=== PATIENT | male | born 1960 | race Caucasian/White ===

== ENCOUNTER 2017-03-22 15:34 | Inpatient (IN) | payer MEDICARE, MEDICAID ==
--- NOTE | 2017-03-22 15:44 | ED Physician Chart ---
ED Chief Complaint/HPI - Patient Information Date Seen:: 03/22/17 Time Seen:: 15:40 Chief Complaint:: Weakness History of Present Illness:: onset x 2 days of RUE and RLE weakness; hx of CVA; pt denies trauma, H/As, neck pain, C/P, SOB, Abd. Pain, A/N/V/D/C, fever, chills, or urinary s/s Historian:: Patient, EMS Review:: Nurse's Note Reviewed, Old Chart Reviewed, EMS run form Reviewed ED Review of Systems - Review of Systems General/Constitutional: No fever, No chills, No weight loss, No weakness, No diaphoresis, No edema, No loss of appetite Skin: No skin lesions, No rash, No bruising Head: No headache, No light-headedness Eyes: No loss of vision, No pain, No diplopia ENT: No earache, No nasal drainage, No sore throat, No tinnitus Neck: No neck pain, No swelling, No thyromegaly, No stiffness, No mass noted Cardio Vascular: No chest pain, No palpitations, No PND, No orthopnea, No edema Pulmonary: No SOB, No cough, No sputum, No wheezing GI: No nausea, No vomiting, No diarrhea, No pain, No melena, No hematochezia, No constipation, No hematemesis G/U: No dysuria, No frequency, No hematuria Musculoskeletal: Bone or joint pain, No back pain, No muscle pain Endocrine: No polyuria, No polydipsia Psychiatric: Prior psych history, No depression, Anxiety, No suicidal ideation, No homicidal ideation, No auditory hallucination, No visual hallucination Hematopoietic: No bruising, No lymphadenopathy Allergic/Immuno: No urticaria, No angioedema Neurological: No syncope, Focal symptoms, Weakness, No paresthesia, No headache , No seizure, No dizziness, No confusion, No vertigo ED Past Medical History - Past Medical History Obtainable: Yes Past Medical History: HTN, CAD, CVA/TIA, Arthritis Family History: Diabetes Melitus, HTN Social History: Non Smoker, No Alcohol, No Drug Use, Single, Care Facility Surgical History: None Psychiatricy History: Other (Anxiety) Medication: Reviewed ED Physical Exam - Physical Examination General/Constitutional: Awake, Well-developed, well-nourished, Alert, No distress, GCS 15, Non-toxic appearing, Ambulatory Head: Atraumatic Eyes: Lids, conjuctiva normal, PERRL, EOMI Skin: Nl inspection, No rash, No skin lesions, No ecchymosis, Well hydrated, No lymphadenopathy ENMT: External ears, nose nl, Nasal exam nl, Lips, teeth, gums nl Neck: Nontender, Full ROM w/o pain, No JVD, No nuchal rigidity, No bruit, No mass, No stridor Respiratory: Nl effort/Exclusion, Clear to Auscultation, No Wheeze/Rhonchi/Rales Cardio Vascular: RRR, No murmur, gallop, rubs, NL S1 S2 GI: No tenderness/rebounding/guarding, No organomegaly, No hernia, Normal BS's, Nondistended, No mass/bruits, No McBurney tenderness : No CVA tenderness Extremities: No tenderness or effusion, Full ROM, normal strength in all extremities, No edema, Normal digits & nails Neuro/Psych: Alert/oriented, DTR's symmetric, Judgement/insight normal, Mood normal, Normal gait, No focal deficits Other Neuro/Psych comments:: decreased motor and sensory functions of RUE and RLE Misc: Normal back, No paraspinal tenderness ED Septic Shock - . Is Septic Shock (SBP<90, OR Lactate>4 mmol\L) present?: No ED Reassessment (Disposition) - Reassessment Reassessment Condition:: Improved - Diagnosis Diagnosis:: CVA; HTN; Gout; Anxiety Disorder; Weakness - Aftercare/Follow up Instructions Aftercare/Follow-Up Instructions:: Counseled pt regarding lab results/diagnosis & need follow up, Counseled pt & family regarding lab results/diagnosis & need follow up - Patient Disposition Discharge/Transfer:: Acute Care w/in this hosp Accepting Physician:: Dr. Tinajero Time Called:: 1550 Time Responded:: 15:50 Admitted to:: Telemetry Spoke to:: Dr. Tinajero Admitting Medical Physician:: Dr. Tinajero Condition at Disposition:: Stable, Improved
[2017-03-22 16:11] LABS: % BASOPHILS 0.3 % (0.0-2.0); % EOSINOPHILS 4.7 % (0.0-5.0); % LYMPHOCYTES 34.2 % (20.0-50.0); % MONOCYTES 9.8 % (2.0-10.0); HEMATOCRIT 45.1 % (41.0-60); HEMOGLOBIN 15.4 gm/dL (12-16); MEAN CELL VOLUME 91.8 fl (80-99); MEAN CORPUSCULAR HEMOGLOBIN 31.4 pg (26.0-30.0); MEAN CORPUSCULAR HGB CONC 34.2 pg (28.0-36.0); MEAN PLATELET VOLUME 8.5 fl; NEUTROPHILE ABSOLUTE 5.6 Th/cmm (1.8-8.0); PLATELET COUNT 230 Th/cmm (150-400); RED BLOOD COUNT 4.92 Mil/cmm (4.30-5.70); RED CELL DISTRIBUTION WIDTH 14.4 % (11.5-20.0); WHITE BLOOD COUNT 10.9 Th/cmm (4.8-10.8)
[2017-03-22 16:47] LABS: ALB/GLOB RATIO 1.4 (1.0-1.8); ALKALINE PHOSPHATASE 47 U/L (34-104); ANION GAP 6.2 (7.0-16.0); BILIRUBIN,TOTAL 0.3 mg/dL (0.3-1.0); BUN - UREA NITROGEN 14 mg/dL (7-25); BUN/CREATININE RATIO 17.5; CALCIUM SERUM 9.1 mg/dL (8.6-10.3); CARBON DIOXIDE 29.7 mEq/L (21.0-31.0); CHLORIDE 101 mEq/L (98-107); CHOLESTEROL 157 mg/dL (<200); CREATININE - SERUM 0.8 mg/dL (0.7-1.3); GLUCOSE 79 mg/dL (70-105); POTASSIUM SERUM 3.9 mEq/L (3.5-5.1); SGOT 13 U/L (13-39); SGPT/ALT 12 U/L (7-52); SODIUM SERUM 133 mEq/L (136-145); TRIGLYCERIDES 260 mg/dL (<150)
[2017-03-22 16:51] LABS: INR 0.95 (0.5-1.4); PROTHROMBIN TIME (TEST) 9.9 SECONDS (9.5-11.5)
[2017-03-22 17:32] LABS: URINE BILIRUBIN NEGATIVE (NEGATIVE); URINE BLOOD NEGATIVE (NEGATIVE); URINE GLUCOSE (UA) NEGATIVE (NEGATIVE); URINE KETONE NEGATIVE (NEGATIVE); URINE PROTEIN NEGATIVE (NEGATIVE); URINE UROBILINOGEN 0.2 E.U./dL (0.2 - 1.0)
[2017-03-22 17:34] LABS: URINE COLOR YELLOW
--- NOTE | 2017-03-22 20:47 | History & Physical ---
ADMIT DATE: 03/22/2017 HISTORY OF PRESENT ILLNESS: The patient is very well known to me. The patient is known to have history of hypertension, history of diabetes, history of CVA with right hemiparesis, also has a history of pulmonary embolism. I had taken care of the patient at several hospitals and also in the [facility]. He was at [facility]. He is complaining of increasing weakness of the right arm and leg and was also complaining of dizzy when he gets up as well as vertigo. The patient was referred to [facility] Emergency Room, was evaluated, and was admitted for recurrent stroke. The patient has no fever, no chills, no skin lesion, no headache, no neck pain. No chest pain, no nausea, no vomiting, no dysuria. Complains of bony pains. The patient complains of arthritis of both the knees. The patient otherwise is alert, oriented. PHYSICAL EXAMINATION: General: Alert, oriented, elderly male patient. He somewhat has some facial deviation as well as right-sided weakness and right hemiparesis. HEAD: Normal. EYES: Pupils are equal, reactive to light. NECK: Supple, nontender. LUNGS: Clear. CARDIOVASCULAR SYSTEM: S1, S2 heard. ABDOMEN: Soft. Bowel sounds are heard. CENTRAL NERVOUS SYSTEM: Right hemiparesis. DIAGNOSES: Recurrent hemiparesis, recurrent stroke, history of cerebrovascular accident, history of hypertension, history of diabetes, history of pulmonary embolism. PLAN: The patient is being admitted and I will go ahead and do a cardiac evaluation as well as a neurological workup, and I will follow the patient. [facility]# [id number]
[2017-03-22] MEDS ORDERED: Fleet Enema 135 mL RC PRN (22:38)
[2017-03-22] MEDS ORDERED: Magnesium Hydroxide (MOM) 30 mL UDC PO PRN (22:38)
[2017-03-22] MEDS ORDERED: Maalox 30 mL Cup PO PRN (22:38)
--- NOTE | 2017-03-23 07:50 | Diagnostic Imaging Report ---
CHEST X-RAY: AP view INDICATION: pain COMPARISON: None FINDINGS: Exam is limited due to body habitus. There is slight hazy density of the left hemithorax. No focal consolidation or effusions. Heart size is normal. Degenerative changes of spine are noted with scoliosis. IMPRESSION: Slight hazy density of the left hemithorax which is nonspecific and may be due to superimposition of soft tissue structures. Faint infiltrate is considered less likely. Please correlate with findings No focal airspace consolidation identified.
--- NOTE | 2017-03-23 08:07 | Diagnostic Imaging Report ---
Head CT without intravenous contrast Indication: Weakness Comparison: None Technique: Axial images were obtained from the vertex to the skull base without IV contrast. Coronal reconstructions were made. Total DLP: 719, CTDI39.2 FINDINGS: Images of the brain obtained without contrast demonstrate no evidence of an acute hemorrhage. Old infarcts and encephalomalacia seen along left frontal lobe and left basal ganglia. Atrophy is noted. The ventricles and basal cisterns are patent. There is ex vacuo dilatation of the left lateral ventricle. No mass effect or midline shift. No evidence of a skull fracture or focal soft tissue swelling. There is 1 cm bony protuberance along the inner table of left frontal skull. The visualized paranasal sinuses are clear. IMPRESSION: No evidence of acute intracranial hemorrhage. Encephalomalacia of the left frontal lobe likely due to old infarct. Additional old left basal ganglia infarcts are also noted. There is associated ex vacuo dilatation of the left lateral ventricle Atrophy.
[2017-03-23] MEDS ORDERED: Non-Formulary Item 1 EA (Amino Acids/Protein Hydrolys [Pro-Stat Sugar Free Liquid] 30 ML) PO SCH (09:00)
[2017-03-23] MEDS: Multivitamin w/ Minerals Tab PO SCH (09:11)
[2017-03-23 10:28] LABS: URINE BACTERIA OCCASIONAL /hpf (NONE SEEN); URINE EPITHELIAL CELLS OCCASIONAL /lpf (FEW); URINE RBC 0-2 /hpf (0-5)
--- NOTE | 2017-03-23 11:13 | General Progress Note ---
Subjective - Review of Systems Events since last encounter: patient is comfortable no distress no fever Objective - Results Result Diagrams: 03/22/17 16:00 03/22/17 16:00 Recent Labs: Laboratory Last Values WBC 10.9 Th/cmm (4.8-10.8) H 03/22/17 16:00 RBC 4.92 Mil/cmm (4.30-5.70) 03/22/17 16:00 Hgb 15.4 gm/dL (12-16) 03/22/17 16:00 Hct 45.1 % (41.0-60) 03/22/17 16:00 MCV 91.8 fl (80-99) 03/22/17 16:00 MCH 31.4 pg (26.0-30.0) H 03/22/17 16:00 MCHC Differential 34.2 pg (28.0-36.0) 03/22/17 16:00 RDW 14.4 % (11.5-20.0) 03/22/17 16:00 Plt Count 230 Th/cmm (150-400) 03/22/17 16:00 MPV 8.5 fl 03/22/17 16:00 Neutrophils % 51.0 % (40.0-80.0) 03/22/17 16:00 Lymphocytes % 34.2 % (20.0-50.0) 03/22/17 16:00 Monocytes % 9.8 % (2.0-10.0) 03/22/17 16:00 Eosinophils % 4.7 % (0.0-5.0) 03/22/17 16:00 Basophils % 0.3 % (0.0-2.0) 03/22/17 16:00 PT 9.9 SECONDS (9.5-11.5) 03/22/17 16:00 INR 0.95 (0.5-1.4) 03/22/17 16:00 Sodium 133 mEq/L (136-145) L 03/22/17 16:00 Potassium 3.9 mEq/L (3.5-5.1) 03/22/17 16:00 Chloride 101 mEq/L (98-107) 03/22/17 16:00 Carbon Dioxide 29.7 mEq/L (21.0-31.0) 03/22/17 16:00 Anion Gap 6.2 (7.0-16.0) L 03/22/17 16:00 BUN 14 mg/dL (7-25) 03/22/17 16:00 Creatinine 0.8 mg/dL (0.7-1.3) 03/22/17 16:00 Est GFR ( Amer) > 60.0 ml/min (>90) 03/22/17 16:00 Est GFR (Non-Af Amer) > 60.0 ml/min 03/22/17 16:00 BUN/Creatinine Ratio 17.5 03/22/17 16:00 Glucose 79 mg/dL (70-105) 03/22/17 16:00 Calcium 9.1 mg/dL (8.6-10.3) 03/22/17 16:00 Total Bilirubin 0.3 mg/dL (0.3-1.0) 03/22/17 16:00 AST 13 U/L (13-39) 03/22/17 16:00 ALT 12 U/L (7-52) 03/22/17 16:00 Alkaline Phosphatase 47 U/L (34-104) 03/22/17 16:00 Creatine Kinase 86 U/L (30-223) 03/22/17 16:00 Troponin I 0.01 ng/mL (0.01-0.05) 03/22/17 16:00 B-Natriuretic Peptide 5.3 pg/mL (5.0-100.0) 03/22/17 16:00 Total Protein 7.1 gm/dL (6.0-8.3) 03/22/17 16:00 Albumin 4.1 gm/dL (4.2-5.5) L 03/22/17 16:00 Globulin 3.0 gm/dL 03/22/17 16:00 Albumin/Globulin Ratio 1.4 (1.0-1.8) 03/22/17 16:00 Triglycerides 260 mg/dL (<150) H 03/22/17 16:00 Cholesterol 157 mg/dL (<200) 03/22/17 16:00 LDL Cholesterol Direct 99 mg/dL (75-193) 03/22/17 16:00 HDL Cholesterol 35 mg/dL (23-92) 03/22/17 16:00 Urine Source CLEAN C 03/22/17 17:20 Urine Color YELLOW 03/22/17 17:20 Urine Clarity CLEAR (CLEAR) 03/22/17 17:20 Urine pH 6.0 (4.6 - 8.0) 03/22/17 17:20 Ur Specific [place] 1.010 (1.005-1.030) 03/22/17 17:20 Urine Protein NEGATIVE mg/dL (NEGATIVE) 03/22/17 17:20 Urine Glucose (UA) NEGATIVE mg/dL (NEGATIVE) 03/22/17 17:20 Urine Ketones NEGATIVE mg/dL (NEGATIVE) 03/22/17 17:20 Urine Blood NEGATIVE (NEGATIVE) 03/22/17 17:20 Urine Nitrate NEGATIVE (NEGATIVE) 03/22/17 17:20 Urine Bilirubin NEGATIVE (NEGATIVE) 03/22/17 17:20 Urine Urobilinogen 0.2 E.U./dL (0.2 - 1.0) 03/22/17 17:20 Ur Leukocyte Esterase NEGATIVE (NEGATIVE) 03/22/17 17:20 Urine RBC 0-2 /hpf (0-5) H 03/22/17 17:20 Ur Epithelial Cells OCCASIONAL /lpf (FEW) 03/22/17 17:20 Urine Bacteria OCCASIONAL /hpf (NONE SEEN) 03/22/17 17:20 - Physical Exam Vitals and I&O: Vital Signs Temp 98.0 F 03/23/17 08:00 Pulse 55 03/23/17 08:00 Resp 18 03/23/17 08:00 BP 114/66 03/23/17 08:00 Pulse Ox 96 03/23/17 04:00 Intake & Output 03/22/17 03/23/17 03/23/17 18:59 06:59 18:59 Intake Total 0 Output Total 600 Balance -600 Weight (lbs) 106.594 kg Intake: Oral 0 Tube Feeding 0 TPN/PPN 0 Blood Product 0 Lipid 0 Albumin 0 Other 0 Output: Gastric Drainage 0 Urine 600 Stool 0 Urine/Stool Mix 0 Emesis 0 Hemodialysis 0 Other 0 Other: # Voids 1 # Bowel Movements 0 Active Medications: Current Medications Acetaminophen (Tylenol) 650 mg PO Q4HR PRN PRN Reason: TEMP >101 Stop: 05/21/17 22:37 Acetaminophen (Tylenol Extra Strength) 1,000 mg PO Q4HR PRN PRN Reason: MODERATE PAIN Stop: 05/21/17 22:37 Al Hydrox/Mg Hydrox/Simethicone (Maalox) 30 ml PO Q6H PRN PRN Reason: HEARTBURN/DYSPEPSIA Ascorbic Acid (Vitamin C) 500 mg PO DAILY [facility] Stop: 05/22/17 08:59 Last Admin: 03/23/17 09:11 Dose: 500 mg Bisacodyl (Dulcolax 10 Mg Supp) 10 mg RC DAILY PRN PRN Reason: IF MOM INEFFECTIVE FOR CONSTIP Stop: 05/21/17 22:37 Chlordiazepoxide (Librium) 25 mg PO DAILY [facility] PRN Reason: Protocol Stop: 05/22/17 08:59 Last Admin: 03/23/17 09:11 Dose: 25 mg Docusate Sodium (Colace) 100 mg PO DAILY [facility] Stop: 05/22/17 08:59 Last Admin: 03/23/17 09:11 Dose: 100 mg Magnesium Hydroxide (Milk Of Magnesia) 30 ml PO HS PRN PRN Reason: Constipation Stop: 05/21/17 22:37 Ondansetron HCl (Zofran Odt) 4 mg PO Q4H PRN PRN Reason: NAUSEA/VOMITING Sodium Phosphate (Fleet Enema) 135 ml RC Q48H PRN PRN Reason: IF DULCOLAX INEFFECTIVE FOR CO Stop: 05/21/17 22:37 Zolpidem Tartrate (Ambien) 5 mg PO HS [facility] Stop: 05/22/17 20:59 General: No acute distress HEENT: Atraumatic Neck: Thyromegaly Cardiovascular: Regular rate, Normal S1, Normal S2 Lungs: Clear to auscultation Assessment/Plan - Problem List Patient Problems: All Active Problems INCREASED WEAKNESS WITH BODY PAIN (Acute) - Plan Plan: cpm
[2017-03-24 06:00] LABS: % EOSINOPHILS 5.2 % (0.0-5.0); % LYMPHOCYTES 35.6 % (20.0-50.0); % MONOCYTES 8.6 % (2.0-10.0); % NEUTROPHILS 49.6 % (40.0-80.0); HEMOGLOBIN 15.8 gm/dL (12-16); MEAN CELL VOLUME 92.4 fl (80-99); MEAN CORPUSCULAR HEMOGLOBIN 30.5 pg (26.0-30.0); MEAN PLATELET VOLUME 8.9 fl; NEUTROPHILE ABSOLUTE 5.7 Th/cmm (1.8-8.0); PLATELET COUNT 247 Th/cmm (150-400); RED BLOOD COUNT 5.19 Mil/cmm (4.30-5.70); RED CELL DISTRIBUTION WIDTH 14.2 % (11.5-20.0); WHITE BLOOD COUNT 11.5 Th/cmm (4.8-10.8)
[2017-03-24 06:31] LABS: ALB/GLOB RATIO 1.3 (1.0-1.8); ALKALINE PHOSPHATASE 40 U/L (34-104); ANION GAP 8.4 (7.0-16.0); BILIRUBIN,TOTAL 0.5 mg/dL (0.3-1.0); BUN - UREA NITROGEN 12 mg/dL (7-25); CARBON DIOXIDE 28.3 mEq/L (21.0-31.0); CHLORIDE 104 mEq/L (98-107); CREATININE - SERUM 0.8 mg/dL (0.7-1.3); GLUCOSE 82 mg/dL (70-105); POTASSIUM SERUM 3.7 mEq/L (3.5-5.1); SGOT 11 U/L (13-39); SGPT/ALT 10 U/L (7-52); SODIUM SERUM 137 mEq/L (136-145)
[2017-03-24] MEDS: Acetaminophen 500 MG TAB PO PRN ×2 (09:25→21:53)
[2017-03-24] MEDS: Multivitamin w/ Minerals Tab PO SCH (09:26)
--- NOTE | 2017-03-24 11:35 | Internal Medicine Prog Note ---
Internal Medicine Subjective - Subjective Service Date: 03/24/17 Patient seen and examined:: with staff Patient is:: awake, verbal Per staff patient has:: tolerating meds Internal Medicine Objective - Results Result Diagrams: 03/24/17 05:18 03/24/17 05:18 Recent Labs: Laboratory Last Values WBC 11.5 Th/cmm (4.8-10.8) H 03/24/17 05:18 RBC 5.19 Mil/cmm (4.30-5.70) 03/24/17 05:18 Hgb 15.8 gm/dL (12-16) 03/24/17 05:18 Hct 48.0 % (41.0-60) 03/24/17 05:18 MCV 92.4 fl (80-99) 03/24/17 05:18 MCH 30.5 pg (26.0-30.0) H 03/24/17 05:18 MCHC Differential 33.0 pg (28.0-36.0) 03/24/17 05:18 RDW 14.2 % (11.5-20.0) 03/24/17 05:18 Plt Count 247 Th/cmm (150-400) 03/24/17 05:18 MPV 8.9 fl 03/24/17 05:18 Neutrophils % 49.6 % (40.0-80.0) 03/24/17 05:18 Lymphocytes % 35.6 % (20.0-50.0) 03/24/17 05:18 Monocytes % 8.6 % (2.0-10.0) 03/24/17 05:18 Eosinophils % 5.2 % (0.0-5.0) H 03/24/17 05:18 Basophils % 1.0 % (0.0-2.0) 03/24/17 05:18 PT 9.9 SECONDS (9.5-11.5) 03/22/17 16:00 INR 0.95 (0.5-1.4) 03/22/17 16:00 Sodium 137 mEq/L (136-145) 03/24/17 05:18 Potassium 3.7 mEq/L (3.5-5.1) 03/24/17 05:18 Chloride 104 mEq/L (98-107) 03/24/17 05:18 Carbon Dioxide 28.3 mEq/L (21.0-31.0) 03/24/17 05:18 Anion Gap 8.4 (7.0-16.0) 03/24/17 05:18 BUN 12 mg/dL (7-25) 03/24/17 05:18 Creatinine 0.8 mg/dL (0.7-1.3) 03/24/17 05:18 Est GFR ( Amer) > 60.0 ml/min (>90) 03/24/17 05:18 Est GFR (Non-Af Amer) > 60.0 ml/min 03/24/17 05:18 BUN/Creatinine Ratio 15.0 03/24/17 05:18 Glucose 82 mg/dL (70-105) 03/24/17 05:18 Calcium 9.0 mg/dL (8.6-10.3) 03/24/17 05:18 Total Bilirubin 0.5 mg/dL (0.3-1.0) 03/24/17 05:18 AST 11 U/L (13-39) L 03/24/17 05:18 ALT 10 U/L (7-52) 03/24/17 05:18 Alkaline Phosphatase 40 U/L (34-104) 03/24/17 05:18 Creatine Kinase 86 U/L (30-223) 03/22/17 16:00 Troponin I 0.01 ng/mL (0.01-0.05) 03/22/17 16:00 B-Natriuretic Peptide 5.3 pg/mL (5.0-100.0) 03/22/17 16:00 Total Protein 6.7 gm/dL (6.0-8.3) 03/24/17 05:18 Albumin 3.8 gm/dL (4.2-5.5) L 03/24/17 05:18 Globulin 2.9 gm/dL 03/24/17 05:18 Albumin/Globulin Ratio 1.3 (1.0-1.8) 03/24/17 05:18 Triglycerides 260 mg/dL (<150) H 03/22/17 16:00 Cholesterol 157 mg/dL (<200) 03/22/17 16:00 LDL Cholesterol Direct 99 mg/dL (75-193) 03/22/17 16:00 HDL Cholesterol 35 mg/dL (23-92) 03/22/17 16:00 Urine Source CLEAN C 03/22/17 17:20 Urine Color YELLOW 03/22/17 17:20 Urine Clarity CLEAR (CLEAR) 03/22/17 17:20 Urine pH 6.0 (4.6 - 8.0) 03/22/17 17:20 Ur Specific [place] 1.010 (1.005-1.030) 03/22/17 17:20 Urine Protein NEGATIVE mg/dL (NEGATIVE) 03/22/17 17:20 Urine Glucose (UA) NEGATIVE mg/dL (NEGATIVE) 03/22/17 17:20 Urine Ketones NEGATIVE mg/dL (NEGATIVE) 03/22/17 17:20 Urine Blood NEGATIVE (NEGATIVE) 03/22/17 17:20 Urine Nitrate NEGATIVE (NEGATIVE) 03/22/17 17:20 Urine Bilirubin NEGATIVE (NEGATIVE) 03/22/17 17:20 Urine Urobilinogen 0.2 E.U./dL (0.2 - 1.0) 03/22/17 17:20 Ur Leukocyte Esterase NEGATIVE (NEGATIVE) 03/22/17 17:20 Urine RBC 0-2 /hpf (0-5) H 03/22/17 17:20 Ur Epithelial Cells OCCASIONAL /lpf (FEW) 03/22/17 17:20 Urine Bacteria OCCASIONAL /hpf (NONE SEEN) 03/22/17 17:20 - Physical Exam Vitals and I&O: Vital Signs Temp 98.4 F 03/24/17 04:00 Pulse 65 03/24/17 04:00 Resp 18 03/24/17 04:00 BP 121/68 03/24/17 04:00 Pulse Ox 98 03/24/17 04:00 Intake & Output 03/23/17 03/24/17 03/24/17 18:59 06:59 18:59 Intake Total 1740 Output Total 1250 0 Balance 490 0 Weight (lbs) 235 lb 232 lb Intake: Oral 1740 Output: Urine 1250 Stool 0 Other: # Voids 3 Active Medications: Current Medications Acetaminophen (Tylenol) 650 mg PO Q4HR PRN PRN Reason: TEMP >101 Stop: 05/21/17 22:37 Acetaminophen (Tylenol Extra Strength) 1,000 mg PO Q4HR PRN PRN Reason: MODERATE PAIN Stop: 05/21/17 22:37 Last Admin: 03/24/17 09:25 Dose: 1,000 mg Al Hydrox/Mg Hydrox/Simethicone (Maalox) 30 ml PO Q6H PRN PRN Reason: HEARTBURN/DYSPEPSIA Ascorbic Acid (Vitamin C) 500 mg PO DAILY [facility] Stop: 05/22/17 08:59 Last Admin: 03/24/17 09:25 Dose: 500 mg Bisacodyl (Dulcolax 10 Mg Supp) 10 mg RC DAILY PRN PRN Reason: IF MOM INEFFECTIVE FOR CONSTIP Stop: 05/21/17 22:37 Chlordiazepoxide (Librium) 25 mg PO DAILY [facility] PRN Reason: Protocol Stop: 05/22/17 08:59 Last Admin: 03/24/17 09:26 Dose: 25 mg Docusate Sodium (Colace) 100 mg PO DAILY [facility] Stop: 05/22/17 08:59 Last Admin: 03/24/17 09:25 Dose: 100 mg Magnesium Hydroxide (Milk Of Magnesia) 30 ml PO HS PRN PRN Reason: Constipation Stop: 05/21/17 22:37 Ondansetron HCl (Zofran Odt) 4 mg PO Q4H PRN PRN Reason: NAUSEA/VOMITING Sodium Phosphate (Fleet Enema) 135 ml RC Q48H PRN PRN Reason: IF DULCOLAX INEFFECTIVE FOR CO Stop: 05/21/17 22:37 Zolpidem Tartrate (Ambien) 5 mg PO HS [facility] Stop: 05/22/17 20:59 Last Admin: 03/23/17 21:45 Dose: 5 mg General: alert HEENT: NC/AT, PERRLA Neck: Supple Lungs: CTAB Cardiovascular: RRR, Normal S1, Normal S2, without murmur Abdomen: soft, non-tender, non-distended, positive bowel sound Extremities: excoriation Neurological: alert Internal Medicine Assmt/Plan - Assessment Assessment: recent hemiparesis recent stroke hx cva htn dm hx PE - Plan Plan: fall precautions pt eval tele monitoring continue current plan of care
[2017-03-25] MEDS: Multivitamin w/ Minerals Tab PO SCH (09:08)
--- NOTE | 2017-03-25 21:11 | Discharge Summary ---
DATE OF DISCHARGE: 03/25/2017 COURSE OF HOSPITAL TREATMENT: This is a 56-year-old male who was admitted through the Emergency Room from home due to increased generalized weakness. From the Emergency Room, the patient work ups were done and diagnosed with increasing hemiparesis due to history of CVA and history of hypertension and pulmonary embolism, hence, the patient was admitted to telemetry unit on which monitoring was done. Once stabilized, the patient was discharged home with the family members. Prescription was given and instructed to follow up with primary doctor within 7 days. Discharge instructions were given to patient and verbalize understanding. JOB# [id number]
== END 2017-03-25 10:45 | disposition home or self-care (01) | DRG 71 ==
LOC: ER 15:34 → TELE 15:50
PROVIDERS: ADMIT Internal Medicine; ATTEND Internal Medicine
DX: G93.89 Other specified disorders of brain (principal); I69.351 Hemiplegia and hemiparesis following cerebral infarction affecting right dominant side; E11.9 Type 2 diabetes mellitus without complications; I10 Essential (primary) hypertension; F41.9 Anxiety disorder, unspecified; M10.9 Gout, unspecified; I25.10 Atherosclerotic heart disease of native coronary artery without angina pectoris; M17.0 Bilateral primary osteoarthritis of knee; Z86.711 Personal history of pulmonary embolism; Z83.3 Family history of diabetes mellitus; Z82.49 Family history of ischemic heart disease and other diseases of the circulatory system; I69.398 Other sequelae of cerebral infarction
CPT/HCPCS: 36415-UA; 70450-TC; 71010-TC; 80053-TC; 80061-TC; 81001-TC; 82550-TC; 83880-TC; 84484-TC; 85025-TC; 85610-TC; 93005; Z7610

== ENCOUNTER 2017-09-26 21:42 | Inpatient (IN) | payer MEDICARE, MEDICAID ==
--- NOTE | 2017-09-26 21:54 | ED Physician Chart ---
ED Chief Complaint/HPI - Patient Information Date Seen:: 09/26/17 Time Seen:: 21:49 Chief Complaint:: Dysuria, hematuria and low back pain History of Present Illness:: 56 yo male with history of stroke and right hemiparesis was brought from [facility] to ER for evaluation of dysuria, hematuria and low back pain for 5 hours. Allergies:: Allergies Allergy/AdvReac Type Severity Reaction Status Date / Time No Known Allergies Allergy Verified 03/22/17 15:52 ED Review of Systems - Review of Systems General/Constitutional: No fever Skin: No bruising Head: No headache Eyes: No pain ENT: No nasal drainage Neck: No neck pain Cardio Vascular: No chest pain Pulmonary: No SOB GI: No nausea, No vomiting G/U: Dysuria, Hematuria Musculoskeletal: Bone or joint pain, Back pain Neurological: Weakness ED Past Medical History - Past Medical History Past Medical History: HTN, CAD, CVA/TIA, DVT/PE, Other (Obese) Social History: Smoker, Alcohol, Illicit Drug Use (marijuana) Surgical History: Appendectomy Psychiatricy History: Other (psychosis) Family Medical History - Family Member Mother History Unknown: Yes Ethnicity: Living Status: Hx Family Cancer: No Hx Family Coronary Artery Disease: No Hx Family Congestive Heart Failure: No Hx Family Hypertension: No Hx Family Stroke: Yes Hx Family Diabetes: No Hx Family Seizures: No Hx Family Dementia: No Hx Family AIDS: No Hx Family HIV: No Hx Family COPD: No Hx Family Hepatitis: No Hx Family Psychiatric Problems: No Hx Family Tuberculosis: No ED Physical Exam - Physical Examination General/Constitutional: Awake Head: Atraumatic Eyes: PERRL Skin: No ecchymosis ENMT: Nasal exam nl Neck: No nuchal rigidity Respiratory: No Wheeze/Rhonchi/Rales Cardio Vascular: RRR, No murmur, gallop, rubs, NL S1 S2 GI: No tenderness/rebounding/guarding Extremities: No edema Other Neuro/Psych comments:: LUE 5/5, LLE 5/5, RUE 2/5, RLE 3/5 ED Labs/Radiology/EKG Results - Lab Results Results: Laboratory Last Values WBC 22.3 Th/cmm (4.8-10.8) H* D 09/26/17 22:15 RBC 4.99 Mil/cmm (4.30-5.70) 09/26/17 22:15 Hgb 15.3 gm/dL (12-16) 09/26/17:15 Hct 45.7 % (41.0-60) 09/26/17:15 MCV 91.6 fl (80-99) 09/26/17 22:15 MCH 30.6 pg (26.0-30.0) H 09/26/17:15 MCHC Differential 33.5 pg (28.0-36.0) 09/26/17: RDW 14.3 % (11.5-20.0) 09/26/17:15 Plt Count 208 Th/cmm (150-400) 09/26/17: MPV 9.1 fl 09/26/17: Band Neutrophils % 7 % (0-10) 09/26/17: Neutrophils (Manual) 81 % (40-80) H 09/26/17: Lymphocytes 11 % (20-50) L 09/26/17: Eosinophils 1 % (0-5) 09/26/17: Platelet Estimate ADEQUATE (NORMAL) 09/26/17: PT 16.1 SECONDS (9.5-11.5) H 09/26/17: INR 1.52 (0.5-1.4) H 09/26/17: PTT (Actin FS) 42.4 SECONDS (26.0-38.0) H 09/26/17 22:15 D-Dimer < 100 ng/mL (100-400) L 09/26/17 22:15 Sodium 136 mEq/L (136-145) 09/26/17:15 Potassium 3.8 mEq/L (3.5-5.1) 09/26/17: Chloride 103 mEq/L (98-107) 09/26/17: Carbon Dioxide 24.9 mEq/L (21.0-31.0) 09/26/17: Anion Gap 11.9 (7.0-16.0) 09/26/17 22:15 BUN 6 mg/dL (7-25) L 09/26/17: Creatinine 0.8 mg/dL (0.7-1.3) 05/22/18 22:15 Est GFR ( Amer) > 60.0 ml/min (>90) 09/26/17 22:15 Est GFR (Non-Af Amer) > 60.0 ml/min 09/26/17 22:15 BUN/Creatinine Ratio 7.5 09/26/17 22:15 Glucose 87 mg/dL (70-105) 09/26/17 22:15 Whole Bld Lactic Acid 0.81 mmol/L (0.60-1.99) 09/26/17 22:15 Calcium 9.2 mg/dL (8.6-10.3) 09/26/17 22:15 Total Bilirubin 1.0 mg/dL (0.3-1.0) 09/26/17 22:15 AST 11 U/L (13-39) L 09/26/17 22:15 ALT 13 U/L (7-52) 09/26/17 22:15 Alkaline Phosphatase 73 U/L (34-104) 09/26/17 22:15 Troponin I < 0.01 ng/mL (0.01-0.05) L 09/26/17 22:15 B-Natriuretic Peptide 15.6 pg/mL (5.0-100.0) 09/26/17 22:15 Total Protein 7.1 gm/dL (6.0-8.3) 09/26/17 22:15 Albumin 4.0 gm/dL (4.2-5.5) L 09/26/17 22:15 Globulin 3.1 gm/dL 09/26/17 22:15 Albumin/Globulin Ratio 1.3 (1.0-1.8) 09/26/17 22:15 Lipase 14 U/L (11-82) 09/26/17 22:15 Urine Source RANDOM 09/26/17 21:50 Urine Color YELLOW 09/26/17 21:50 Urine Clarity CLOUDY (CLEAR) 09/26/17 21:50 Urine pH 6.0 (4.6 - 8.0) 09/26/17 21:50 Ur Specific [place] <= 1.005 (1.005-1.030) 09/26/17 21:50 Urine Protein TRACE mg/dL (NEGATIVE) 09/26/17 21:50 Urine Glucose (UA) NEGATIVE mg/dL (NEGATIVE) 09/26/17 21:50 Urine Ketones TRACE mg/dL (NEGATIVE) 09/26/17 21:50 Urine Blood LARGE (NEGATIVE) H 09/26/17 21:50 Urine Nitrate POSITIVE (NEGATIVE) H 09/26/17 21:50 Urine Bilirubin NEGATIVE (NEGATIVE) 09/26/17 21:50 Urine Urobilinogen 0.2 E.U./dL (0.2 - 1.0) 09/26/17 21:50 Ur Leukocyte Esterase LARGE (NEGATIVE) H 09/26/17 21:50 Urine RBC 2-5 /hpf (0-5) H 09/26/17 21:50 Urine WBC >100 /hpf (0-5) H 09/26/17 21:50 Ur Epithelial Cells FEW /lpf (FEW) 09/26/17 21:50 Urine Bacteria MODERATE /hpf (NONE SEEN) H 09/26/17 21:50 Urine Opiates Screen NEGATIVE (NEGATIVE) 09/26/17 21:50 Urine Methadone Screen NEGATIVE (NEGATIVE) 09/26/17 21:50 Ur Barbiturates Screen NEGATIVE (NEGATIVE) 09/26/17 21:50 Ur Tricyclics Screen POSITIVE (NEGATIVE) H 09/26/17 21:50 Ur Phencyclidine Scrn NEGATIVE (NEGATIVE) 09/26/17 21:50 Amphetamines Screen NEGATIVE (NEGATIVE) 09/26/17 21:50 U Methamphetamines Scrn NEGATIVE (NEGATIVE) 09/26/17 21:50 U Benzodiazepines Scrn NEGATIVE (NEGATIVE) 09/26/17 21:50 U Cocaine Metab Screen NEGATIVE (NEGATIVE) 09/26/17 21:50 U Cannabinoids Screen POSITIVE (NEGATIVE) H 09/26/17 21:50 - Radiology Results Results: CXR: No focal consolidation ED Assessment - Assessment General Assessment: UTI Leukocytosis Hematuria Stroke with right hemiparesis Assessment/Comments:: CBC, CMP, UA CXR, EKG Rocephin NS 1L IV bolus ED Septic Shock - . Is Septic Shock (SBP<90, OR Lactate>4 mmol\L) present?: No ED Reassessment (Disposition) - Reassessment Reassessment Condition:: Improved - Patient Disposition Discharge/Transfer:: Acute Care w/in this hosp Admitting Medical Physician:: Nicole Tinajero ED Discharge Plan - Patient Disposition Admit/Discharge/Transfer: Acute Care w/in this hosp
[2017-09-26 22:25] LABS: HEMATOCRIT 45.7 % (41.0-60); HEMOGLOBIN 15.3 gm/dL (12-16); MANUAL DIFF REQUIRED? YES; MEAN CELL VOLUME 91.6 fl (80-99); MEAN CORPUSCULAR HEMOGLOBIN 30.6 pg (26.0-30.0); MEAN CORPUSCULAR HGB CONC 33.5 pg (28.0-36.0); MEAN PLATELET VOLUME 9.1 fl; PLATELET COUNT 208 Th/cmm (150-400); RED BLOOD COUNT 4.99 Mil/cmm (4.30-5.70); RED CELL DISTRIBUTION WIDTH 14.3 % (11.5-20.0)
[2017-09-26 22:26] LABS: URINE MICROSCOPIC INDICATED? YES; URINE SOURCE RANDOM
[2017-09-26 22:30] LABS: WHITE BLOOD COUNT 22.3 Th/cmm (4.8-10.8)
[2017-09-26] MEDS ORDERED: Sodium Chloride 0.9% 1,000 ML IV ONE (22:32)
[2017-09-26 22:35] LABS: URINE BILIRUBIN NEGATIVE (NEGATIVE); URINE BLOOD LARGE (NEGATIVE); URINE GLUCOSE (UA) NEGATIVE (NEGATIVE); URINE KETONE TRACE mg/dL (NEGATIVE); URINE LEUKOCYTE ESTERASE LARGE (NEGATIVE); URINE NITRATE POSITIVE (NEGATIVE); URINE PROTEIN TRACE mg/dL (NEGATIVE); URINE UROBILINOGEN 0.2 E.U./dL (0.2 - 1.0)
[2017-09-26 22:41] LABS: INR 1.52 (0.5-1.4); PROTHROMBIN TIME (TEST) 16.1 SECONDS (9.5-11.5)
[2017-09-26 22:46] LABS: URINE CLARITY CLOUDY (CLEAR); URINE COLOR YELLOW
[2017-09-26 22:47] LABS: URINE EPITHELIAL CELLS FEW /lpf (FEW); URINE WBC >100 /hpf (0-5)
[2017-09-26 22:48] LABS: URINE BACTERIA MODERATE /hpf (NONE SEEN)
[2017-09-26] MEDS ORDERED: cefTRIAXone 1 GM in Sodium Chloride 0.9% 50 ML IV ONE (22:50)
[2017-09-26 22:53] LABS: ALB/GLOB RATIO 1.3 (1.0-1.8); ALKALINE PHOSPHATASE 73 U/L (34-104); ANION GAP 11.9 (7.0-16.0); BUN - UREA NITROGEN 6 mg/dL (7-25); CALCIUM SERUM 9.2 mg/dL (8.6-10.3); CARBON DIOXIDE 24.9 mEq/L (21.0-31.0); CHLORIDE 103 mEq/L (98-107); CREATININE - SERUM 0.8 mg/dL (0.7-1.3); GFR AFRICAN-AMERICAN > 60.0 ml/min (>90); GFR NON AFRICAN-AMERICAN > 60.0 ml/min; GLUCOSE 87 mg/dL (70-105); LIPASE 14 U/L (11-82); POTASSIUM SERUM 3.8 mEq/L (3.5-5.1); SGOT 11 U/L (13-39); SGPT/ALT 13 U/L (7-52); SODIUM SERUM 136 mEq/L (136-145); TOTAL PROTEIN,SERUM 7.1 gm/dL (6.0-8.3)
[2017-09-26 23:12] LABS: BAND NEUTROPHILE 7 % (0-10); EOSINOPHIL 1 % (0-5); LYMPHOCYTE 11 % (20-50); NEUTROPHILS 81 % (40-80); PLATELET ESTIMATE ADEQUATE (NORMAL); TOTAL CELLS COUNTED 100
[2017-09-26 23:37] LABS: AMPHETAMINE URINE NEGATIVE (NEGATIVE); BARBITURATES URINE NEGATIVE (NEGATIVE); BENZODIAZEPINES QUAL URINE NEGATIVE (NEGATIVE); CANNABINOID THC POSITIVE (NEGATIVE); COCAINE METABOLITE QUAL URINE NEGATIVE (NEGATIVE); METHADONE URINE NEGATIVE (NEGATIVE); METHAMPHETAMINES QUAL URINE NEGATIVE (NEGATIVE); OPIATES (MORPHINE) QUAL. URINE NEGATIVE (NEGATIVE); PHENCYCLIDINE (PCP) URINE NEGATIVE (NEGATIVE); TRICYCLICS (TCA) QUAL. URINE POSITIVE (NEGATIVE)
[2017-09-27] MEDS: D5-0.45NS 1,000 ML IV SCH ×2 (00:48→20:14)
[2017-09-27] MEDS: Levofloxacin 500mg/100mL 500 MG/100 ML BAG IV SCH (00:49)
[2017-09-27 02:08] VITALS: BP 140/82
[2017-09-27 07:43] LABS: ANION GAP 12.9 (7.0-16.0); BUN - UREA NITROGEN 6 mg/dL (7-25); CALCIUM SERUM 8.7 mg/dL (8.6-10.3); CARBON DIOXIDE 21.8 mEq/L (21.0-31.0); CHLORIDE 107 mEq/L (98-107); CHOLESTEROL 65 mg/dL (<200); CREATININE - SERUM 0.6 mg/dL (0.7-1.3); GFR AFRICAN-AMERICAN > 60.0 ml/min (>90); GFR NON AFRICAN-AMERICAN > 60.0 ml/min; GLUCOSE 90 mg/dL (70-105); HDL -HIGH DENSITY LIPOPROTEIN 31 mg/dL (23-92); POTASSIUM SERUM 3.7 mEq/L (3.5-5.1); SODIUM SERUM 138 mEq/L (136-145); TRIGLYCERIDES 70 mg/dL (<150)
[2017-09-27 07:51] LABS: BASOPHILE ABSOLUTE 0.1 Th/cumm (0-0.2); EOSINOPHILE ABSOLUTE 0.1 Th/cmm (0.1-0.4); HEMOGLOBIN 15.2 gm/dL (12-16); LYMPHOCYTE ABSOLUTE 1.7 Th/cmm (1.5-3.0); MEAN CELL VOLUME 92.5 fl (80-99); MEAN CORPUSCULAR HEMOGLOBIN 31.2 pg (26.0-30.0); MEAN CORPUSCULAR HGB CONC 33.7 pg (28.0-36.0); MEAN PLATELET VOLUME 9.4 fl; MONOCYTE ABSOLUTE 1.2 Th/cmm (0.3-1.0); NEUTROPHILE ABSOLUTE 20.1 Th/cmm (1.8-8.0); PLATELET COUNT 200 Th/cmm (150-400); RED BLOOD COUNT 4.87 Mil/cmm (4.30-5.70); RED CELL DISTRIBUTION WIDTH 14.6 % (11.5-20.0)
[2017-09-27 08:00] LABS: WHITE BLOOD COUNT 23.2 Th/cmm (4.8-10.8)
[2017-09-27 08:01] LABS: % BASOPHILS 0.6 % (0.0-2.0); % EOSINOPHILS 0.5 % (0.0-5.0); % LYMPHOCYTES 7.4 % (20.0-50.0); % MONOCYTES 5.3 % (2.0-10.0); % NEUTROPHILS 86.2 % (40.0-80.0)
[2017-09-27] MEDS ORDERED: Magnesium Hydroxide (MOM) 30 mL UDC PO PRN (08:08)
[2017-09-27] MEDS ORDERED: Acetaminophen 500 MG TAB PO PRN (08:08)
[2017-09-27] MEDS ORDERED: Fleet Enema 135 mL RC PRN (08:08)
--- NOTE | 2017-09-27 08:49 | Diagnostic Imaging Report ---
CHEST X-RAY: AP view INDICATION: Cough COMPARISON: 03/22/2017 FINDINGS: The patient is slightly rotated. There is no focal consolidation or pleural effusions The heart is normal in size. Degenerative changes of the spine and shoulders are noted. IMPRESSION: No acute cardiopulmonary disease.
[2017-09-27] MEDS ORDERED: CRANBERRY FRUIT PO SCH (09:00)
[2017-09-27] MEDS: POLYETHYLENE GLYCOL 3350 17 GM PACK PO SCH ×2 (09:57→10:03)
[2017-09-27] MEDS ORDERED: Probiotic Screen MC PRN (10:12)
--- NOTE | 2017-09-27 12:28 | Diagnostic Imaging Report ---
Ultrasound urinary bladder History: Urinary tract infection, difficulty voiding Comparison: None Technique/procedure: Sonography of the pelvis was performed in multiple planes The prevoid bladder volume is 146 mL's. The postvoid bladder volume is 78 mL's. The urinary bladder wall measures 6 mm. The prostate gland measures 4.7 x 5.4 cm demonstrating a 1.1 cm echogenic focus most quality assurance representative of a calcification. IMPRESSION: Mildly elevated postvoid residual bladder volume is 78 mL's. Clinical correlation recommended. Mild urinary bladder wall thickening which may be due to infectious or inflammatory process or secondary to chronic bladder outlet obstruction from patient's prominent prostate gland, correlate clinically.
--- NOTE | 2017-09-27 14:46 | Diagnostic Imaging Report ---
Renal ultrasound HISTORY: Gross hematuria. COMPARISON: Renal ultrasound earlier the same day Technique: Sonography of the kidneys and urinary bladder was performed in multiple planes. FINDINGS: Exam is limited due to patient's incontinence and increased body habitus. The right kidney measures 12.4 x 5.6 cm. The left kidney measures 11.3 x 5.3. The renal margins are not well-defined, however, no obvious focal lesions identified. No hydronephrosis. The urinary bladder is underdistended, limiting its evaluation. IMPRESSION: Markedly limited exam, no evidence of hydronephrosis. Slight increased size of the right kidney, nonspecific.
--- NOTE | 2017-09-27 16:20 | Consultation ---
Consult Note - Consult Note Service Date: 09/27/17 Referring Physician: Nicole Tinajero Consult Note: PHYSICIAN Consultation Note: Date of Admission: 09/26/17 Purpose of Consultation: UTI and leukocytosis. Chief Complaint: Patient DASIA SMITH was admitted to location Medical/ [facility] Unit I with UTI. History of Present Illness:Patient 56-year-old male with a past medical history of CVA, right-sided hemiparesis, BPH and developed hematuria is with a low back pain. Was also compared dysuria. He was brought to the ER for further evaluation and management. On initial evaluation, patient's temperature was 97.5F and WBC count was 22,300 and hemoglobin 15.3. Urinalysis showed the large blood positive nitrites and large leuk esterase and WBC more than 100 and moderate bacteria. Patient was diagnosed to have UTI and he started Levaquin was started onto screen was positive for tricyclic and cannabinoids. Renal ultrasound and bladder ultrasound showed urinary bladder wall thickening and prominent prostate gland. ID consult was called for further evaluation and management. Past Medical History: Allergies Allergy/AdvReac Type Severity Reaction Status Date / Time No Known Allergies Allergy Verified 03/22/17 15:52 Vital Signs Temp 98.1 F 09/27/17 04:29 Pulse 89 09/27/17 04:29 Resp 20 09/27/17 04:29 BP 131/64 09/27/17 04:29 Pulse Ox 97 09/27/17 04:29 Intake & Output 09/26/17 09/27/17 09/27/17 18:59 06:59 18:59 Intake Total 1150 Balance 1150 Weight (lbs) 128.508 kg Intake: Intake, IV Amount 1150 Levofloxacin 500mg/100mL 100 500 mg In 100 ml @ 100 mls/hr IV Q24HR@0000 [facility] Rx#:[id number] Laboratory Results - last 24 hr 09/27/17 09/27/17 09/27/17 05:36 05:54 05:56 WBC 23.2 H* RBC 4.87 Hgb 15.2 Hct 45.0 MCV 92.5 MCH 31.2 H MCHC Differential 33.7 RDW 14.6 Plt Count 200 MPV 9.4 Neutrophils % 86.2 H Lymphocytes % 7.4 L Monocytes % 5.3 Eosinophils % 0.5 Basophils % 0.6 Sodium 138 Potassium 3.7 Chloride 107 Carbon Dioxide 21.8 Anion Gap 12.9 BUN 6 L Creatinine 0.6 L Est GFR ( Amer) > 60.0 Est GFR (Non-Af Amer) > 60.0 BUN/Creatinine Ratio 10.0 Glucose 90 Calcium 8.7 Triglycerides 70 Cholesterol 65 LDL Cholesterol Direct 23 L HDL Cholesterol 31 TSH 0.75 Home Medication Medication Instructions Recorded Type Acetaminophen [Tylenol Extra 1,000 mg PO Q8HR PRN MDD NTE 3 03/22/17 History Strength] grams/24 hr Acetaminophen [Tylenol] 650 mg PO Q6HR PRN 03/22/17 History Bisacodyl [Dulcolax 10 Mg Supp] 10 mg RC DAILY PRN 03/22/17 History Docusate Sodium [Colace] 100 mg PO BID 03/22/17 History Fleet Enema 135 ml RC Q48H PRN 03/22/17 History Magnesium Hydroxide [Milk of 30 ml PO HS PRN 03/22/17 History Magnesia] Zolpidem Tartrate [Ambien] 5 mg PO HS PRN 03/22/17 History Aspirin [Ecotrin] 81 mg PO DAILY 09/26/17 History Atorvastatin Calcium [Lipitor] 80 mg PO HS 09/26/17 History Cranberry Fruit Concentrate 1 tab PO DAILY 09/26/17 History [Cranberry] Folic Acid [Folate*] 1 mg PO DAILY 09/26/17 History Nitroglycerin [Nitrostat*] 0.4 mg SL X1 PRN 09/26/17 History Polyethylene Glycol 3350 [Miralax] 17 gm PO DAILY 09/26/17 History QUEtiapine Fumarate [SEROquel] 12.5 mg PO BID 09/26/17 History Rivaroxaban [Xarelto] 15 mg PO BID 09/26/17 History Current Medications Generic Name Dose Route Start Last Admin Trade Name Freq PRN Reason Stop Dose Admin Acetaminophen 650 mg 09/27/17 08:08 Tylenol PO 11/26/17 08:07 Q6HR PRN MILD PAIN OR TEMP >101 Acetaminophen 1,000 mg 09/27/17 08:08 Tylenol Extra Strength PO 11/26/17 08:07 Q8HR PRN MODERATE PAIN Aspirin 81 mg 09/27/17 09:00 09/27/17 09:57 Ecotrin PO 11/26/17 08:59 81 mg DAILY [facility] Administration Atorvastatin Calcium 80 mg 09/27/17 21:00 Lipitor PO 11/26/17 20:59 HS [facility] Protocol Bisacodyl 10 mg 09/27/17 08:08 Dulcolax 10 Mg Supp RC 11/26/17 08:07 DAILY PRN IF MOM INEFFECTIVE FOR CONSTIP Docusate Sodium 100 mg 09/27/17 09:00 09/27/17 09:57 Colace PO 11/26/17 08:59 100 mg BID [facility] Administration Folic Acid 1 mg 09/27/17 09:00 09/27/17 09:57 Folate PO 11/26/17 08:59 1 mg DAILY [facility] Administration Dextrose/Sodium Chloride 1,000 mls @ 50 mls/hr 09/26/17 23:15 09/27/17 00:48 D5-0.45ns IV 11/25/17 23:14 50 mls/hr .Q20H [facility] Administration Levofloxacin 500 mg in 100 mls @ 100 mls/hr 09/27/17 00:00 09/27/17 01:49 Levaquin Pb IV 11/26/17 00:00 Infused Q24HR@0000 [facility] Infusion Lactobacillus Rhamnosus 1 each 09/28/17 09:00 Culturelle 15b PO 11/27/17 08:59 DAILY [facility] Magnesium Hydroxide 30 ml 09/27/17 08:08 Milk Of Magnesia PO 11/26/17 08:07 HS PRN Constipation Miscellaneous 1 ea 09/27/17 10:12 Probiotic Screen [facility] 11/26/17 10:11 PRN PRN PROTOCOL Nitroglycerin 0.4 mg 09/27/17 08:08 Nitrostat SL 11/26/17 08:07 Q5M PRN Chest Pain Polyethylene Glycol 17 gm 09/27/17 09:00 09/27/17 10:03 Miralax PO 11/26/17 08:59 Not Given DAILY [facility] Quetiapine Fumarate 12.5 mg 09/27/17 09:00 09/27/17 09:57 Seroquel PO 11/26/17 08:59 12.5 mg BID [facility] Administration Protocol Rivaroxaban 15 mg 09/27/17 09:00 09/27/17 13:41 Xarelto PO 11/26/17 08:59 Not Given BID [facility] Sodium Phosphate 135 ml 09/27/17 08:08 Fleet Enema RC 11/26/17 08:07 Q48H PRN IF DULCOLAX INEFFECTIVE FOR CO Zolpidem Tartrate 5 mg 09/27/17 08:08 Ambien PO 11/26/17 08:07 HS PRN Insomnia Review of Systems: A 12 point ROS was reviewed with the pertinent positive and negatives noted in the HPI. Social History Smoking Status Current every day smoker Drug Use No Alcohol Use No Family Medical History Mother History Unknown Yes Ethnicity Non- Living Status Hx Family Cancer No Hx Family Coronary Artery Disease No Hx Family Congestive Heart Failure No Hx Family Hypertension Yes Hx Family Stroke No Hx Family Diabetes No Hx Family Seizures No Hx Family Dementia No Hx Family AIDS No Hx Family HIV No Hx Family COPD No Hx Family Hepatitis No Hx Family Psychiatric Problems No Hx Family Tuberculosis No Physical Exam: General: Comfortable, not in acute distress. Obese. HEENT: Head: NC NT. Oral cavity: Moist, pink tongue. Eyes: Pupil PERRLA. EOMI. No icterus. No pallor. Neck: Supple, no JVD. No use of accessory neck muscles. No thyromegaly. Cardio: Swollen and S2 within normal limit. No murmur no gallop. Respiratory: Vesicular breath sound. No crackles no wheezing. Abdominal: Soft, nontender, nondistended bowel sounds present. Genital/Urinary: Deferred. Extremities: No cyanosis, no clubbing, and edema. Neurological: Alert, awake, oriented 3. Assessment: 1. Hematuria. 2. UTI. 3. Leukocytosis, reactive to the hematuria and UTI. Cannot rule out sepsis at this time. 4. BPH. 5. CVA with right-sided weakness. Plan: Continue bladder irrigation and the antibiotic obrien, continue Levaquin. Thank you, Dr. Tinajero, for involving me in taking care of this patient. Signed, Sawyer Ocampo M.D. [id number]
--- NOTE | 2017-09-27 17:14 | History & Physical ---
ADMIT DATE: 09/27/2017 HISTORY OF PRESENT ILLNESS: A 56-year-old male patient very well known to me. The patient known to have a history of stroke in the past and history of right hemiparesis. The patient developed hematuria and low back pain and also dysuria, was brought to the ER. The patient was seen and was admitted for possible UTI, prostate enlargement, history of hypertension, coronary artery disease and history of DVT in the past. PHYSICAL EXAMINATION: GENERAL: Alert, oriented male with right hemiparesis. HEAD: Normal. ENT: Normal. NECK: Supple and nontender. LUNGS: Clear. CARDIOVASCULAR SYSTEM: S1 and S2 heard. ABDOMEN: Soft. Bowel sounds are heard. Right hemiparesis. DIAGNOSES: Urinary tract infection, leukocytosis, systemic inflammatory response syndrome, hematuria, benign prostatic hypertrophy, history of stroke and history of right hemiparesis. PLAN: The patient is being admitted. The IV antibiotics and will have Urology as well as ID doctor see the patient. I will follow the patient. JOB# [id number]
[2017-09-28] MEDS: Levofloxacin 500mg/100mL 500 MG/100 ML BAG IV SCH (00:19)
--- NOTE | 2017-09-28 02:47 | Consultation ---
DATE OF CONSULTATION: UROLOGY CONSULTATION REASON FOR CONSULTATION: Seen for dysuria and hematuria. HISTORY OF PRESENT ILLNESS: The patient is a 56-year-old gentleman from a [facility] facility, who came to the Emergency Room yesterday with complaints of gross blood in the urine, dysuria, and low back pain. He denied fever, nausea, vomiting, or flank pain. Apparently, he has been a victim of a stroke with right hemiparesis for almost 40 years and has never had problems with his bladder with infection, bleeding, retention, stones, or any surgeries. Denies prostate biopsy or operations. Denies kidney stones and basically has managed to have a normal bladder function without much incontinence. Urinating mostly in the urinal by the bedside. Similarly, he has been able to control his bowel movements as well and remains without the need for a diaper. He claims this is the first episode of bleeding and dysuria in the last 40 years. PAST SURGICAL HISTORY: Appendectomy and an injury to the left arm. REVIEW OF SYSTEMS: No fever, weight loss, headache, or seizures. Denied chest pain, coughing, or shortness of breath. No sore throat or nasal discharge. No abdominal pain, vomiting, or diarrhea. Urologic as described. Skin, the patient is beginning to get some infection in the abdominal crease and over the buttocks and sacral area about which he is not aware of. No joint pains. No headache or seizures. PAST MEDICAL HISTORY: Positive for hypertension. The patient also has coronary artery disease as one of his problems listed. History of stroke as described. There is also history of DVT and possible PE, details not known. History of morbid obesity. SOCIAL HISTORY: Apparently smokes, uses alcohol and marijuana as well. HOME MEDICATIONS: Tylenol, aspirin, Lipitor, Dulcolax, Colace, magnesium hydroxide, Fleet's enema as needed, Nitrostat on a p.r.n. dose, MiraLax, Xarelto, and Ambien. ALLERGIES: None. PHYSICAL EXAMINATION: GENERAL: He is awake, alert, oriented gentleman, narrates his history quite well. VITAL SIGNS: Temperature 98.1, heart rate 89, and blood pressure 131/64. HEAD AND NECK: Normocephalic. Trachea central. Pupils equal and reactive. No jaundice. NECK: Thyroid and lymph nodes not palpable. Carotid bruit absent. CHEST: Symmetrical. LUNGS: Clear. No rales or rhonchi. CARDIOVASCULAR: Heart sounds normal in sinus rhythm, no murmur. ABDOMEN: Massively obese and soft. Skin infection in the creases on the lateral aspect in the lower abdomen. No hernia. No organomegaly or masses. GENITALIA: Normal male, penis uncircumcised. No scrotal masses. RECTAL: Sphincter tone reduced. Prostate is small 20 grams to 25 grams on palpation. No nodules or tenderness. NEUROLOGIC: Right hemiparesis, right arm movement better than left arm. EXTREMITIES: Trace edema below the knees. LABORATORY DATA: White count was 22.3 yesterday, today is 23.2; hemoglobin 15.2; platelets 200; and neutrophils 81 with left shift. No bands are reported. PT/INR 1.5 and PTT 42.4. Electrolytes are normal. BUN 6 and creatinine 0.6. Urine showed large amount of blood and nitrites and leukocyte esterase, moderate bacteria. Toxic screen positive for tricyclics and cannabis. Cultures are hopefully pending. Chest x-ray is unremarkable. IMPRESSION: 1. Urinary tract infection and gross hematuria, rule out pyelonephritis and urologic malignancy. Recommend a bladder ultrasound that was just completed and shows about 65 mL of postvoid residual not enough to explain significant infection. This along with the history of 40 years of being infection free indicates most likely that he does not have an obstructive uropathy. We may have to rule out a malignancy; however, the elevated white count, there may be an element of infection as well. We will have to wait for cultures. Meanwhile, we will order a renal ultrasound as well and we will have to consider holding the Xarelto if a cystoscopy needs to be undertaken in the next few days. We will request medical clearance for this purpose. 2. Obesity. 3. Hypertension. 4. History of stroke and coronary artery disease as well as history of deep venous thrombosis are major risk factors for any surgical procedure. JOB# [id number]
[2017-09-28] MEDS: Lactobacillus Rhamnosus GG 15 Billion CFU CAP.SPRINK PO SCH (09:56)
[2017-09-28] MEDS: POLYETHYLENE GLYCOL 3350 17 GM PACK PO SCH (09:56)
--- NOTE | 2017-09-28 16:01 | General Progress Note ---
Objective - Results Result Diagrams: 09/27/17 05:36 09/27/17 05:56 Recent Labs: Laboratory Last Values WBC 23.2 Th/cmm (4.8-10.8) H* 09/27/17 05:36 RBC 4.87 Mil/cmm (4.30-5.70) 09/27/17 05:36 Hgb 15.2 gm/dL (12-16) 09/27/17 05:36 Hct 45.0 % (41.0-60) 09/27/17 05:36 MCV 92.5 fl (80-99) 09/27/17 05:36 MCH 31.2 pg (26.0-30.0) H 09/27/17 05:36 MCHC Differential 33.7 pg (28.0-36.0) 09/27/17 05:36 RDW 14.6 % (11.5-20.0) 09/27/17 05:36 Plt Count 200 Th/cmm (150-400) 09/27/17 05:36 MPV 9.4 fl 09/27/17 05:36 Neutrophils % 86.2 % (40.0-80.0) H 09/27/17 05:36 Band Neutrophils % 7 % (0-10) 09/26/17 22:15 Lymphocytes % 7.4 % (20.0-50.0) L 09/27/17 05:36 Monocytes % 5.3 % (2.0-10.0) 09/27/17 05:36 Eosinophils % 0.5 % (0.0-5.0) 09/27/17 05:36 Basophils % 0.6 % (0.0-2.0) 09/27/17 05:36 Neutrophils (Manual) 81 % (40-80) H 09/26/17 22:15 Lymphocytes 11 % (20-50) L 09/26/17 22:15 Eosinophils 1 % (0-5) 09/26/17 22:15 Platelet Estimate ADEQUATE (NORMAL) 09/26/17 22:15 PT 16.1 SECONDS (9.5-11.5) H 09/26/17 22:15 INR 1.52 (0.5-1.4) H 09/26/17 22:15 PTT (Actin FS) 42.4 SECONDS (26.0-38.0) H 09/26/17 22:15 D-Dimer < 100 ng/mL (100-400) L 09/26/17 22:15 Sodium 138 mEq/L (136-145) 09/27/17 05:56 Potassium 3.7 mEq/L (3.5-5.1) 09/27/17 05:56 Chloride 107 mEq/L (98-107) 09/27/17 05:56 Carbon Dioxide 21.8 mEq/L (21.0-31.0) 09/27/17 05:56 Anion Gap 12.9 (7.0-16.0) 09/27/17 05:56 BUN 6 mg/dL (7-25) L 09/27/17 05:56 Creatinine 0.6 mg/dL (0.7-1.3) L 09/27/17 05:56 Est GFR ( Amer) > 60.0 ml/min (>90) 09/27/17 05:56 Est GFR (Non-Af Amer) > 60.0 ml/min 09/27/17 05:56 BUN/Creatinine Ratio 10.0 09/27/17 05:56 Glucose 90 mg/dL (70-105) 09/27/17 05:56 Whole Bld Lactic Acid 0.81 mmol/L (0.60-1.99) 09/26/17 22:15 Calcium 8.7 mg/dL (8.6-10.3) 09/27/17 05:56 Total Bilirubin 1.0 mg/dL (0.3-1.0) 09/26/17 22:15 AST 11 U/L (13-39) L 09/26/17 22:15 ALT 13 U/L (7-52) 09/26/17 22:15 Alkaline Phosphatase 73 U/L (34-104) 09/26/17 22:15 Troponin I < 0.01 ng/mL (0.01-0.05) L 09/26/17 22:15 B-Natriuretic Peptide 15.6 pg/mL (5.0-100.0) 09/26/17 22:15 Total Protein 7.1 gm/dL (6.0-8.3) 09/26/17 22:15 Albumin 4.0 gm/dL (4.2-5.5) L 09/26/17 22:15 Globulin 3.1 gm/dL 09/26/17 22:15 Albumin/Globulin Ratio 1.3 (1.0-1.8) 09/26/17 22:15 Triglycerides 70 mg/dL (<150) 09/27/17 05:56 Cholesterol 65 mg/dL (<200) 09/27/17 05:56 LDL Cholesterol Direct 23 mg/dL (75-193) L 09/27/17 05:56 HDL Cholesterol 31 mg/dL (23-92) 09/27/17 05:56 Lipase 14 U/L (11-82) 09/26/17 22:15 TSH 0.75 uIU/ml (0.34-5.60) 09/27/17 05:54 Urine Source RANDOM 09/26/17 21:50 Urine Color YELLOW 09/26/17 21:50 Urine Clarity CLOUDY (CLEAR) 09/26/17 21:50 Urine pH 6.0 (4.6 - 8.0) 09/26/17 21:50 Ur Specific [place] <= 1.005 (1.005-1.030) 09/26/17 21:50 Urine Protein TRACE mg/dL (NEGATIVE) 09/26/17 21:50 Urine Glucose (UA) NEGATIVE mg/dL (NEGATIVE) 09/26/17 21:50 Urine Ketones TRACE mg/dL (NEGATIVE) 09/26/17 21:50 Urine Blood LARGE (NEGATIVE) H 09/26/17 21:50 Urine Nitrate POSITIVE (NEGATIVE) H 09/26/17 21:50 Urine Bilirubin NEGATIVE (NEGATIVE) 09/26/17 21:50 Urine Urobilinogen 0.2 E.U./dL (0.2 - 1.0) 09/26/17 21:50 Ur Leukocyte Esterase LARGE (NEGATIVE) H 09/26/17 21:50 Urine RBC 2-5 /hpf (0-5) H 09/26/17 21:50 Urine WBC >100 /hpf (0-5) H 09/26/17 21:50 Ur Epithelial Cells FEW /lpf (FEW) 09/26/17 21:50 Urine Bacteria MODERATE /hpf (NONE SEEN) H 09/26/17 21:50 Urine Opiates Screen NEGATIVE (NEGATIVE) 09/26/17 21:50 Urine Methadone Screen NEGATIVE (NEGATIVE) 05/22/18 21:50 Ur Barbiturates Screen NEGATIVE (NEGATIVE) 09/26/17 21:50 Ur Tricyclics Screen POSITIVE (NEGATIVE) H 09/26/17 21:50 Ur Phencyclidine Scrn NEGATIVE (NEGATIVE) 09/26/17 21:50 Amphetamines Screen NEGATIVE (NEGATIVE) 09/26/17 21:50 U Methamphetamines Scrn NEGATIVE (NEGATIVE) 09/26/17 21:50 U Benzodiazepines Scrn NEGATIVE (NEGATIVE) 09/26/17 21:50 U Cocaine Metab Screen NEGATIVE (NEGATIVE) 09/26/17 21:50 U Cannabinoids Screen POSITIVE (NEGATIVE) H 09/26/17 21:50 - Physical Exam Vitals and I&O: Vital Signs Temp 98.2 F 09/28/17 10:00 Pulse 75 09/28/17 10:00 Resp 18 09/28/17 10:00 BP 129/71 09/28/17 10:00 Pulse Ox 96 09/28/17 10:00 Intake & Output 09/27/17 09/28/17 09/28/17 18:59 06:59 18:59 Intake Total 971.667 Output Total 400 Balance 571.667 Weight (lbs) 118.841 kg 118.841 kg Intake: Intake, IV Amount 971.667 D5-0.45NS 1,000 ml @ 50 971.667 mls/hr IV .Q20H [facility] Rx#: [id number] Output: Urine 400 Other: Weight Source Patient stated Estimated Active Medications: Current Medications Acetaminophen (Tylenol) 650 mg PO Q6HR PRN PRN Reason: MILD PAIN OR TEMP >101 Stop: 11/26/17 08:07 Last Admin: 09/27/17 20:49 Dose: 650 mg Acetaminophen (Tylenol Extra Strength) 1,000 mg PO Q8HR PRN PRN Reason: MODERATE PAIN Stop: 11/26/17 08:07 Aspirin (Ecotrin) 81 mg PO DAILY [facility] Stop: 11/26/17 08:59 Last Admin: 09/28/17 09:56 Dose: 81 mg Atorvastatin Calcium (Lipitor) 80 mg PO HS [facility] PRN Reason: Protocol Stop: 11/26/17 20:59 Last Admin: 09/27/17 20:49 Dose: 80 mg Bisacodyl (Dulcolax 10 Mg Supp) 10 mg RC DAILY PRN PRN Reason: IF MOM INEFFECTIVE FOR CONSTIP Stop: 11/26/17 08:07 Docusate Sodium (Colace) 100 mg PO BID [facility] Stop: 11/26/17 08:59 Last Admin: 09/28/17 09:56 Dose: 100 mg Folic Acid (Folate) 1 mg PO DAILY [facility] Stop: 11/26/17 08:59 Last Admin: 09/28/17 09:56 Dose: 1 mg Dextrose/Sodium Chloride (D5-0.45ns) 1,000 mls @ 50 mls/hr IV .Q20H [facility] Stop: 11/25/17 23:14 Last Admin: 09/27/17 20:14 Dose: 50 mls/hr Levofloxacin (Levaquin Pb) 500 mg in 100 mls @ 100 mls/hr IV Q24HR@0000 [facility] Stop: 11/26/17 00:00 Last Admin: 09/28/17 00:19 Dose: 100 mls/hr Lactobacillus Rhamnosus (Culturelle 15b) 1 each PO DAILY [facility] Stop: 11/27/17 08:59 Last Admin: 09/28/17 09:56 Dose: 1 each Magnesium Hydroxide (Milk Of Magnesia) 30 ml PO HS PRN PRN Reason: Constipation Stop: 11/26/17 08:07 Miscellaneous (Probiotic Screen) 1 ea [facility] PRN PRN PRN Reason: PROTOCOL Stop: 11/26/17 10:11 Nitroglycerin (Nitrostat) 0.4 mg SL Q5M PRN PRN Reason: Chest Pain Stop: 11/26/17 08:07 Polyethylene Glycol (Miralax) 17 gm PO DAILY [facility] Stop: 11/26/17 08:59 Last Admin: 09/28/17 09:56 Dose: 17 gm Quetiapine Fumarate (Seroquel) 12.5 mg PO BID [facility] PRN Reason: Protocol Stop: 11/26/17 08:59 Last Admin: 09/28/17 09:56 Dose: 12.5 mg Rivaroxaban (Xarelto) 15 mg PO BID [facility] Stop: 11/26/17 08:59 Last Admin: 09/28/17 15:03 Dose: Not Given Sodium Phosphate (Fleet Enema) 135 ml RC Q48H PRN PRN Reason: IF DULCOLAX INEFFECTIVE FOR CO Stop: 11/26/17 08:07 Zolpidem Tartrate (Ambien) 5 mg PO HS PRN PRN Reason: Insomnia Stop: 11/26/17 08:07
--- NOTE | 2017-09-28 23:34 | Infectious Disease Prog Note ---
Infectious Disease Subjective - Review of Systems Service Date: 09/28/17 Subjective: No new change, no fever,. Infectious Disease Objective - Results Result Diagrams: 09/27/17 05:36 09/27/17 05:56 Recent Labs: Laboratory Last Values WBC 23.2 Th/cmm (4.8-10.8) H* 09/27/17 05:36 RBC 4.87 Mil/cmm (4.30-5.70) 09/27/17 05:36 Hgb 15.2 gm/dL (12-16) 09/27/17 05:36 Hct 45.0 % (41.0-60) 09/27/17 05:36 MCV 92.5 fl (80-99) 09/27/17 05:36 MCH 31.2 pg (26.0-30.0) H 09/27/17 05:36 MCHC Differential 33.7 pg (28.0-36.0) 09/27/17 05:36 RDW 14.6 % (11.5-20.0) 09/27/17 05:36 Plt Count 200 Th/cmm (150-400) 09/27/17 05:36 MPV 9.4 fl 09/27/17 05:36 Neutrophils % 86.2 % (40.0-80.0) H 09/27/17 05:36 Band Neutrophils % 7 % (0-10) 09/26/17 22:15 Lymphocytes % 7.4 % (20.0-50.0) L 09/27/17 05:36 Monocytes % 5.3 % (2.0-10.0) 09/27/17 05:36 Eosinophils % 0.5 % (0.0-5.0) 09/27/17 05:36 Basophils % 0.6 % (0.0-2.0) 09/27/17 05:36 Neutrophils (Manual) 81 % (40-80) H 09/26/17 22:15 Lymphocytes 11 % (20-50) L 09/26/17 22:15 Eosinophils 1 % (0-5) 09/26/17 22:15 Platelet Estimate ADEQUATE (NORMAL) 09/26/17 22:15 PT 16.1 SECONDS (9.5-11.5) H 09/26/17 22:15 INR 1.52 (0.5-1.4) H 09/26/17 22:15 PTT (Actin FS) 42.4 SECONDS (26.0-38.0) H 09/26/17 22:15 D-Dimer < 100 ng/mL (100-400) L 09/26/17 22:15 Sodium 138 mEq/L (136-145) 09/27/17 05:56 Potassium 3.7 mEq/L (3.5-5.1) 09/27/17 05:56 Chloride 107 mEq/L (98-107) 09/27/17 05:56 Carbon Dioxide 21.8 mEq/L (21.0-31.0) 09/27/17 05:56 Anion Gap 12.9 (7.0-16.0) 09/27/17 05:56 BUN 6 mg/dL (7-25) L 09/27/17 05:56 Creatinine 0.6 mg/dL (0.7-1.3) L 09/27/17 05:56 Est GFR ( Amer) > 60.0 ml/min (>90) 09/27/17 05:56 Est GFR (Non-Af Amer) > 60.0 ml/min 09/27/17 05:56 BUN/Creatinine Ratio 10.0 09/27/17 05:56 Glucose 90 mg/dL (70-105) 09/27/17 05:56 Whole Bld Lactic Acid 0.81 mmol/L (0.60-1.99) 09/26/17 22:15 Calcium 8.7 mg/dL (8.6-10.3) 09/27/17 05:56 Total Bilirubin 1.0 mg/dL (0.3-1.0) 09/26/17 22:15 AST 11 U/L (13-39) L 09/26/17 22:15 ALT 13 U/L (7-52) 09/26/17 22:15 Alkaline Phosphatase 73 U/L (34-104) 09/26/17 22:15 Troponin I < 0.01 ng/mL (0.01-0.05) L 09/26/17 22:15 B-Natriuretic Peptide 15.6 pg/mL (5.0-100.0) 09/26/17 22:15 Total Protein 7.1 gm/dL (6.0-8.3) 09/26/17 22:15 Albumin 4.0 gm/dL (4.2-5.5) L 09/26/17 22:15 Globulin 3.1 gm/dL 09/26/17 22:15 Albumin/Globulin Ratio 1.3 (1.0-1.8) 09/26/17 22:15 Triglycerides 70 mg/dL (<150) 09/27/17 05:56 Cholesterol 65 mg/dL (<200) 09/27/17 05:56 LDL Cholesterol Direct 23 mg/dL (75-193) L 09/27/17 05:56 HDL Cholesterol 31 mg/dL (23-92) 09/27/17 05:56 Lipase 14 U/L (11-82) 09/26/17 22:15 TSH 0.75 uIU/ml (0.34-5.60) 09/27/17 05:54 Urine Source RANDOM 09/26/17 21:50 Urine Color YELLOW 09/26/17 21:50 Urine Clarity CLOUDY (CLEAR) 09/26/17 21:50 Urine pH 6.0 (4.6 - 8.0) 09/26/17 21:50 Ur Specific [place] <= 1.005 (1.005-1.030) 09/26/17 21:50 Urine Protein TRACE mg/dL (NEGATIVE) 09/26/17 21:50 Urine Glucose (UA) NEGATIVE mg/dL (NEGATIVE) 09/26/17 21:50 Urine Ketones TRACE mg/dL (NEGATIVE) 09/26/17 21:50 Urine Blood LARGE (NEGATIVE) H 09/26/17 21:50 Urine Nitrate POSITIVE (NEGATIVE) H 09/26/17 21:50 Urine Bilirubin NEGATIVE (NEGATIVE) 09/26/17 21:50 Urine Urobilinogen 0.2 E.U./dL (0.2 - 1.0) 09/26/17 21:50 Ur Leukocyte Esterase LARGE (NEGATIVE) H 09/26/17 21:50 Urine RBC 2-5 /hpf (0-5) H 09/26/17 21:50 Urine WBC >100 /hpf (0-5) H 09/26/17 21:50 Ur Epithelial Cells FEW /lpf (FEW) 09/26/17 21:50 Urine Bacteria MODERATE /hpf (NONE SEEN) H 09/26/17 21:50 Urine Opiates Screen NEGATIVE (NEGATIVE) 09/26/17 21:50 Urine Methadone Screen NEGATIVE (NEGATIVE) 09/26/17 21:50 Ur Barbiturates Screen NEGATIVE (NEGATIVE) 09/26/17 21:50 Ur Tricyclics Screen POSITIVE (NEGATIVE) H 09/26/17 21:50 Ur Phencyclidine Scrn NEGATIVE (NEGATIVE) 09/26/17 21:50 Amphetamines Screen NEGATIVE (NEGATIVE) 09/26/17 21:50 U Methamphetamines Scrn NEGATIVE (NEGATIVE) 09/26/17 21:50 U Benzodiazepines Scrn NEGATIVE (NEGATIVE) 09/26/17 21:50 U Cocaine Metab Screen NEGATIVE (NEGATIVE) 09/26/17 21:50 U Cannabinoids Screen POSITIVE (NEGATIVE) H 09/26/17 21:50 - Physical Exam Vitals and I&O: Vital Signs Temp 98.2 F 09/28/17 10:00 Pulse 75 09/28/17 10:00 Resp 20 09/28/17 17:52 BP 129/71 09/28/17 10:00 Pulse Ox 96 09/28/17 10:00 Intake & Output 09/28/17 09/28/17 09/29/17 06:59 18:59 06:59 Intake Total 971.667 Output Total 400 Balance 571.667 Weight (lbs) 118.841 kg 118.841 kg Intake: Intake, IV Amount 971.667 D5-0.45NS 1,000 ml @ 50 971.667 mls/hr IV .Q20H [facility] Rx#: [id number] Output: Urine 400 Other: Stool Characteristics Soft Weight Source Patient stated Estimated Active Medications: Current Medications Acetaminophen (Tylenol) 650 mg PO Q6HR PRN PRN Reason: MILD PAIN OR TEMP >101 Stop: 11/26/17 08:07 Last Admin: 09/27/17 20:49 Dose: 650 mg Acetaminophen (Tylenol Extra Strength) 1,000 mg PO Q8HR PRN PRN Reason: MODERATE PAIN Stop: 11/26/17 08:07 Aspirin (Ecotrin) 81 mg PO DAILY [facility] Stop: 11/26/17 08:59 Last Admin: 09/28/17 09:56 Dose: 81 mg Atorvastatin Calcium (Lipitor) 80 mg PO HS [facility] PRN Reason: Protocol Stop: 11/26/17 20:59 Last Admin: 09/28/17 22:24 Dose: 80 mg Bisacodyl (Dulcolax 10 Mg Supp) 10 mg RC DAILY PRN PRN Reason: IF MOM INEFFECTIVE FOR CONSTIP Stop: 11/26/17 08:07 Docusate Sodium (Colace) 100 mg PO BID [facility] Stop: 11/26/17 08:59 Last Admin: 09/28/17 22:24 Dose: 100 mg Folic Acid (Folate) 1 mg PO DAILY [facility] Stop: 11/26/17 08:59 Last Admin: 09/28/17 09:56 Dose: 1 mg Dextrose/Sodium Chloride (D5-0.45ns) 1,000 mls @ 50 mls/hr IV .Q20H [facility] Stop: 11/25/17 23:14 Last Admin: 09/27/17 20:14 Dose: 50 mls/hr Levofloxacin (Levaquin Pb) 500 mg in 100 mls @ 100 mls/hr IV Q24HR@0000 [facility] Stop: 11/26/17 00:00 Last Admin: 09/28/17 00:19 Dose: 100 mls/hr Lactobacillus Rhamnosus (Culturelle 15b) 1 each PO DAILY [facility] Stop: 11/27/17 08:59 Last Admin: 09/28/17 09:56 Dose: 1 each Magnesium Hydroxide (Milk Of Magnesia) 30 ml PO HS PRN PRN Reason: Constipation Stop: 11/26/17 08:07 Miscellaneous (Probiotic Screen) 1 ea [facility] PRN PRN PRN Reason: PROTOCOL Stop: 11/26/17 10:11 Nitroglycerin (Nitrostat) 0.4 mg SL Q5M PRN PRN Reason: Chest Pain Stop: 11/26/17 08:07 Polyethylene Glycol (Miralax) 17 gm PO DAILY [facility] Stop: 11/26/17 08:59 Last Admin: 09/28/17 09:56 Dose: 17 gm Quetiapine Fumarate (Seroquel) 12.5 mg PO BID [facility] PRN Reason: Protocol Stop: 11/26/17 08:59 Last Admin: 09/28/17 22:24 Dose: 12.5 mg Rivaroxaban (Xarelto) 15 mg PO BID [facility] Stop: 11/26/17 08:59 Last Admin: 09/28/17 22:51 Dose: Not Given Sodium Phosphate (Fleet Enema) 135 ml RC Q48H PRN PRN Reason: IF DULCOLAX INEFFECTIVE FOR CO Stop: 11/26/17 08:07 Zolpidem Tartrate (Ambien) 5 mg PO HS PRN PRN Reason: Insomnia Stop: 11/26/17 08:07 Last Admin: 09/28/17 22:24 Dose: 5 mg General: no acute distress, well developed, well nourished HEENT: atraumatic, normocephalic, PERRLA, EOMI Neck: supple, no thyromegaly, no lymphadenopathy Cardiovascular: S1S2, regular Lungs: clear to auscultation bilaterally, clear to percussion Abdomen: soft, no tender, no mass Extremities: no cyanosis, no clubbing Neurological: awake, alert Skin: intact Infectious Disease Assmt/Plan - Assessment Assessment: 1. Hematuria. 2. UTI. 3. Leukocytosis, reactive to the hematuria and UTI. Cannot rule out sepsis at this time. 4. BPH. 5. CVA with right-sided weakness. - Plan Plan: cpm./
--- NOTE | 2017-09-28 23:45 | Progress Notes ---
DATE: UROLOGY FOLLOWUP PROGRESS NOTE SUBJECTIVE: The patient has no significant complaints. Nurses has not seen any blood in the urine. He has not had fever or dysuria today. His Xarelto has been put on hold today. PHYSICAL EXAMINATION: VITAL SIGNS: Last temperature 98.2, heart rate 75, and blood pressure 129/71. ABDOMEN: Soft, nontender, and nondistended. Bladder is not palpable. EXTREMITIES: Trace edema. LUNGS: No rales or rhonchi. LABORATORY DATA: None were done today. Blood culture has come back negative so far. Renal ultrasound showed no evidence of hydronephrosis and no major abnormalities. IMPRESSION: 1. History of hematuria, awaiting cystoscopy after medical clearance and a reversal of anticoagulation. 2. Urinary tract infection, awaiting cultures for verification. Last white count was high. None was obtained today. We will order this for tomorrow. 3. History of obesity: No change. 4. History of hypertension, stable. 5. History of deep venous thrombosis and pulmonary embolism as well as cerebrovascular accident on anticoagulation until yesterday. JOB# [id number]
[2017-09-29] MEDS: Levofloxacin 500mg/100mL 500 MG/100 ML BAG IV SCH (00:08)
[2017-09-29 06:38] LABS: % BASOPHILS 0.5 % (0.0-2.0); % EOSINOPHILS 2.9 % (0.0-5.0); % LYMPHOCYTES 19.8 % (20.0-50.0); % MONOCYTES 10.6 % (2.0-10.0); % NEUTROPHILS 66.2 % (40.0-80.0); BASOPHILE ABSOLUTE 0.1 Th/cumm (0-0.2); EOSINOPHILE ABSOLUTE 0.3 Th/cmm (0.1-0.4); HEMOGLOBIN 15.2 gm/dL (12-16); LYMPHOCYTE ABSOLUTE 2.2 Th/cmm (1.5-3.0); MEAN CELL VOLUME 93.4 fl (80-99); MEAN CORPUSCULAR HEMOGLOBIN 31.6 pg (26.0-30.0); MEAN CORPUSCULAR HGB CONC 33.8 pg (28.0-36.0); MEAN PLATELET VOLUME 8.9 fl; MONOCYTE ABSOLUTE 1.2 Th/cmm (0.3-1.0); NEUTROPHILE ABSOLUTE 7.4 Th/cmm (1.8-8.0); PLATELET COUNT 193 Th/cmm (150-400); RED BLOOD COUNT 4.82 Mil/cmm (4.30-5.70); RED CELL DISTRIBUTION WIDTH 14.1 % (11.5-20.0); WHITE BLOOD COUNT 11.2 Th/cmm (4.8-10.8)
[2017-09-29 06:41] LABS: BUN - UREA NITROGEN 8 mg/dL (7-25); CALCIUM SERUM 8.2 mg/dL (8.6-10.3); CARBON DIOXIDE 21.6 mEq/L (21.0-31.0); CHLORIDE 105 mEq/L (98-107); CREATININE - SERUM 0.7 mg/dL (0.7-1.3); GFR AFRICAN-AMERICAN > 60.0 ml/min (>90); GFR NON AFRICAN-AMERICAN > 60.0 ml/min; GLUCOSE 97 mg/dL (70-105); POTASSIUM SERUM 3.6 mEq/L (3.5-5.1); SODIUM SERUM 134 mEq/L (136-145)
[2017-09-29] MEDS: POLYETHYLENE GLYCOL 3350 17 GM PACK PO SCH (09:36)
[2017-09-29] MEDS: Lactobacillus Rhamnosus GG 15 Billion CFU CAP.SPRINK PO SCH (09:36)
--- NOTE | 2017-09-29 12:50 | Progress Notes ---
DATE: UROLOGY PROGRESS NOTE SUBJECTIVE: The patient is stable without urinary complaints and is not having any nausea, vomiting, or fever. OBJECTIVE: VITAL SIGNS: Temperature 97.5, heart rate 69, and blood pressure 132/65. HEAD AND NECK: Normocephalic. No sore throat. No thyroid or lymph node enlargement. LUNGS: Clear to auscultation. HEART: Heart sound sinus rhythm. No murmur. ABDOMEN: Obese and soft. Flanks nontender. Bladder nonpalpable. Nondistended. No masses. EXTREMITIES: A 1+ to trace edema. LABORATORY DATA: White count 11.2, which has improved significantly and hemoglobin stable 15.2. Sodium 134, potassium 3.6, BUN 8, and creatinine 0.7. Cultures: Urine culture has come back showing gram-negative rods more than 100,000. ID and susceptibility or sensitivity pending. Blood cultures were negative. IMPRESSION: 1. Urinary tract infection. Rule out bladder tumor, rule out bladder outlet obstruction, require cystoscopy. Dr. Tinajero is planning to send him home and do this cystoscopy as an outpatient. I have discussed this with the showcase maker to arrange for the office cystoscopy, but also have Cardiology clearance and planned to withhold the Xarelto for at least 5 days to plan any surgical intervention like TURP or bladder tumor biopsy, etc. 2. History of obesity and hypertension. Continue to remain risk factors. 3. History of stroke, requires anticoagulants, which we may have to be interrupted for 8-10 days perioperatively and cardiology needs to clear him for that. 4. History of deep venous thrombosis and pulmonary embolism one more risk factor and lastly the present UTI requires adequate treatment for 2-3 weeks with appropriate antibiotics. JOB# [id number]
--- NOTE | 2017-09-29 14:07 | Infectious Disease Prog Note ---
Infectious Disease Subjective - Review of Systems Service Date: 09/29/17 Subjective: No new change, no fever,. Infectious Disease Objective - Results Result Diagrams: 09/29/17 05:45 09/29/17 05:45 Recent Labs: Laboratory Last Values WBC 11.2 Th/cmm (4.8-10.8) H 09/29/17 05:45 RBC 4.82 Mil/cmm (4.30-5.70) 09/29/17 05:45 Hgb 15.2 gm/dL (12-16) 09/29/17 05:45 Hct 45.0 % (41.0-60) 09/29/17 05:45 MCV 93.4 fl (80-99) 09/29/17 05:45 MCH 31.6 pg (26.0-30.0) H 09/29/17 05:45 MCHC Differential 33.8 pg (28.0-36.0) 09/29/17 05:45 RDW 14.1 % (11.5-20.0) 09/29/17 05:45 Plt Count 193 Th/cmm (150-400) 09/29/17 05:45 MPV 8.9 fl 09/29/17 05:45 Neutrophils % 66.2 % (40.0-80.0) 09/29/17 05:45 Band Neutrophils % 7 % (0-10) 09/26/17 22:15 Lymphocytes % 19.8 % (20.0-50.0) L 09/29/17 05:45 Monocytes % 10.6 % (2.0-10.0) H 09/29/17 05:45 Eosinophils % 2.9 % (0.0-5.0) 09/29/17 05:45 Basophils % 0.5 % (0.0-2.0) 09/29/17 05:45 Neutrophils (Manual) 81 % (40-80) H 09/26/17 22:15 Lymphocytes 11 % (20-50) L 09/26/17 22:15 Eosinophils 1 % (0-5) 09/26/17 22:15 Platelet Estimate ADEQUATE (NORMAL) 09/26/17 22:15 PT 16.1 SECONDS (9.5-11.5) H 09/26/17 22:15 INR 1.52 (0.5-1.4) H 09/26/17 22:15 PTT (Actin FS) 42.4 SECONDS (26.0-38.0) H 09/26/17 22:15 D-Dimer < 100 ng/mL (100-400) L 09/26/17 22:15 Sodium 134 mEq/L (136-145) L 09/29/17 05:45 Potassium 3.6 mEq/L (3.5-5.1) 09/29/17 05:45 Chloride 105 mEq/L (98-107) 09/29/17 05:45 Carbon Dioxide 21.6 mEq/L (21.0-31.0) 09/29/17 05:45 Anion Gap 11.0 (7.0-16.0) 09/29/17 05:45 BUN 8 mg/dL (7-25) 09/29/17 05:45 Creatinine 0.7 mg/dL (0.7-1.3) 09/29/17 05:45 Est GFR ( Amer) > 60.0 ml/min (>90) 09/29/17 05:45 Est GFR (Non-Af Amer) > 60.0 ml/min 09/29/17 05:45 BUN/Creatinine Ratio 11.4 09/29/17 05:45 Glucose 97 mg/dL (70-105) 09/29/17 05:45 Whole Bld Lactic Acid 0.81 mmol/L (0.60-1.99) 09/26/17 22:15 Calcium 8.2 mg/dL (8.6-10.3) L 09/29/17 05:45 Total Bilirubin 1.0 mg/dL (0.3-1.0) 09/26/17 22:15 AST 11 U/L (13-39) L 09/26/17 22:15 ALT 13 U/L (7-52) 09/26/17 22:15 Alkaline Phosphatase 73 U/L (34-104) 09/26/17 22:15 Troponin I < 0.01 ng/mL (0.01-0.05) L 09/26/17 22:15 B-Natriuretic Peptide 15.6 pg/mL (5.0-100.0) 09/26/17 22:15 Total Protein 7.1 gm/dL (6.0-8.3) 09/26/17 22:15 Albumin 4.0 gm/dL (4.2-5.5) L 09/26/17 22:15 Globulin 3.1 gm/dL 09/26/17 22:15 Albumin/Globulin Ratio 1.3 (1.0-1.8) 09/26/17 22:15 Triglycerides 70 mg/dL (<150) 09/27/17 05:56 Cholesterol 65 mg/dL (<200) 09/27/17 05:56 LDL Cholesterol Direct 23 mg/dL (75-193) L 09/27/17 05:56 HDL Cholesterol 31 mg/dL (23-92) 09/27/17 05:56 Lipase 14 U/L (11-82) 09/26/17 22:15 TSH 0.75 uIU/ml (0.34-5.60) 09/27/17 05:54 Urine Source RANDOM 09/26/17 21:50 Urine Color YELLOW 09/26/17 21:50 Urine Clarity CLOUDY (CLEAR) 09/26/17 21:50 Urine pH 6.0 (4.6 - 8.0) 09/26/17 21:50 Ur Specific [place] <= 1.005 (1.005-1.030) 09/26/17 21:50 Urine Protein TRACE mg/dL (NEGATIVE) 09/26/17 21:50 Urine Glucose (UA) NEGATIVE mg/dL (NEGATIVE) 09/26/17 21:50 Urine Ketones TRACE mg/dL (NEGATIVE) 09/26/17 21:50 Urine Blood LARGE (NEGATIVE) H 09/26/17 21:50 Urine Nitrate POSITIVE (NEGATIVE) H 09/26/17 21:50 Urine Bilirubin NEGATIVE (NEGATIVE) 09/26/17 21:50 Urine Urobilinogen 0.2 E.U./dL (0.2 - 1.0) 09/26/17 21:50 Ur Leukocyte Esterase LARGE (NEGATIVE) H 09/26/17 21:50 Urine RBC 2-5 /hpf (0-5) H 09/26/17 21:50 Urine WBC >100 /hpf (0-5) H 09/26/17 21:50 Ur Epithelial Cells FEW /lpf (FEW) 09/26/17 21:50 Urine Bacteria MODERATE /hpf (NONE SEEN) H 09/26/17 21:50 Urine Opiates Screen NEGATIVE (NEGATIVE) 09/26/17 21:50 Urine Methadone Screen NEGATIVE (NEGATIVE) 09/26/17 21:50 Ur Barbiturates Screen NEGATIVE (NEGATIVE) 09/26/17 21:50 Ur Tricyclics Screen POSITIVE (NEGATIVE) H 09/26/17 21:50 Ur Phencyclidine Scrn NEGATIVE (NEGATIVE) 09/26/17 21:50 Amphetamines Screen NEGATIVE (NEGATIVE) 09/26/17 21:50 U Methamphetamines Scrn NEGATIVE (NEGATIVE) 09/26/17 21:50 U Benzodiazepines Scrn NEGATIVE (NEGATIVE) 09/26/17 21:50 U Cocaine Metab Screen NEGATIVE (NEGATIVE) 09/26/17 21:50 U Cannabinoids Screen POSITIVE (NEGATIVE) H 09/26/17 21:50 - Physical Exam Vitals and I&O: Vital Signs Temp 97.5 F 09/29/17 11:17 Pulse 69 09/29/17 11:17 Resp 18 09/29/17 11:17 BP 132/65 09/29/17 11:17 Pulse Ox 98 09/29/17 11:17 Intake & Output 09/28/17 09/29/17 09/29/17 18:59 06:59 18:59 Intake Total 300 Output Total 300 Balance 0 Weight (lbs) 118.841 kg 118.841 kg Intake: Intake, IV Amount 100 Levofloxacin 500mg/100mL 100 500 mg In 100 ml @ 100 mls/hr IV Q24HR@0000 [facility] Rx#:[id number] Oral 200 Output: Urine 300 Other: Stool Characteristics Soft Weight Source Estimated Bedscale Active Medications: Current Medications Acetaminophen (Tylenol) 650 mg PO Q6HR PRN PRN Reason: MILD PAIN OR TEMP >101 Stop: 11/26/17 08:07 Last Admin: 09/27/17 20:49 Dose: 650 mg Acetaminophen (Tylenol Extra Strength) 1,000 mg PO Q8HR PRN PRN Reason: MODERATE PAIN Stop: 11/26/17 08:07 Aspirin (Ecotrin) 81 mg PO DAILY [facility] Stop: 11/26/17 08:59 Last Admin: 09/29/17 09:36 Dose: 81 mg Atorvastatin Calcium (Lipitor) 80 mg PO HS [facility] PRN Reason: Protocol Stop: 11/26/17 20:59 Last Admin: 09/28/17 22:24 Dose: 80 mg Bisacodyl (Dulcolax 10 Mg Supp) 10 mg RC DAILY PRN PRN Reason: IF MOM INEFFECTIVE FOR CONSTIP Stop: 11/26/17 08:07 Docusate Sodium (Colace) 100 mg PO BID [facility] Stop: 11/26/17 08:59 Last Admin: 09/29/17 09:36 Dose: 100 mg Folic Acid (Folate) 1 mg PO DAILY [facility] Stop: 11/26/17 08:59 Last Admin: 09/29/17 09:36 Dose: 1 mg Dextrose/Sodium Chloride (D5-0.45ns) 1,000 mls @ 50 mls/hr IV .Q20H [facility] Stop: 11/25/17 23:14 Last Admin: 09/27/17 20:14 Dose: 50 mls/hr Levofloxacin (Levaquin Pb) 500 mg in 100 mls @ 100 mls/hr IV Q24HR@0000 [facility] Stop: 11/26/17 00:00 Last Infusion: 09/29/17 01:08 Dose: Infused Lactobacillus Rhamnosus (Culturelle 15b) 1 each PO DAILY [facility] Stop: 11/27/17 08:59 Last Admin: 09/29/17 09:36 Dose: 1 each Magnesium Hydroxide (Milk Of Magnesia) 30 ml PO HS PRN PRN Reason: Constipation Stop: 11/26/17 08:07 Miscellaneous (Probiotic Screen) 1 ea [facility] PRN PRN PRN Reason: PROTOCOL Stop: 11/26/17 10:11 Nitroglycerin (Nitrostat) 0.4 mg SL Q5M PRN PRN Reason: Chest Pain Stop: 11/26/17 08:07 Polyethylene Glycol (Miralax) 17 gm PO DAILY [facility] Stop: 11/26/17 08:59 Last Admin: 09/29/17 09:36 Dose: Not Given Quetiapine Fumarate (Seroquel) 12.5 mg PO BID [facility] PRN Reason: Protocol Stop: 11/26/17 08:59 Last Admin: 09/29/17 09:37 Dose: 12.5 mg Rivaroxaban (Xarelto) 15 mg PO BID [facility] Stop: 11/26/17 08:59 Last Admin: 09/29/17 09:38 Dose: Not Given Sodium Phosphate (Fleet Enema) 135 ml RC Q48H PRN PRN Reason: IF DULCOLAX INEFFECTIVE FOR CO Stop: 11/26/17 08:07 Zolpidem Tartrate (Ambien) 5 mg PO HS PRN PRN Reason: Insomnia Stop: 11/26/17 08:07 Last Admin: 09/28/17 22:24 Dose: 5 mg General: no acute distress, well developed, well nourished HEENT: atraumatic, normocephalic, PERRLA, EOMI Neck: supple, no thyromegaly Cardiovascular: S1S2, regular Lungs: clear to auscultation bilaterally, clear to percussion Abdomen: soft, no tender, no distended, no rebound Extremities: no cyanosis, no clubbing, no edema Skin: intact Infectious Disease Assmt/Plan - Assessment Assessment: 1. Hematuria. 2. UTI. 3. Leukocytosis, reactive to the hematuria and UTI. Cannot rule out sepsis at this time. 4. BPH. 5. CVA with right-sided weakness. - Plan Plan: CPM, will change antibiotics according tot eh culture report.
--- NOTE | 2017-10-03 18:00 | Discharge Summary ---
DATE OF DISCHARGE: 09/29/2017 This patient is well known to me. The patient apparently had dysuria and hematuria, was seen in [facility], he has had a leukocytosis and the patient also has right hemiparesis from before and the patient was treated with IV antibiotic and Dr. Angel saw the patient. The patient was in stable condition, on 09/29/2017 was transferred back to and follow the patient. MEDICATIONS: See medication reconciliation sheet. JOB# [id number]
== END 2017-09-29 18:05 | DRG 872 ==
LOC: ER 21:42 → MSI 23:05
PROVIDERS: ADMIT Internal Medicine; ATTEND Internal Medicine
DX: A41.9 Sepsis, unspecified organism (principal); N39.0 Urinary tract infection, site not specified; I69.351 Hemiplegia and hemiparesis following cerebral infarction affecting right dominant side; R65.10 Systemic inflammatory response syndrome (SIRS) of non-infectious origin without acute organ dysfunction; N40.0 Benign prostatic hyperplasia without lower urinary tract symptoms; I25.10 Atherosclerotic heart disease of native coronary artery without angina pectoris; I10 Essential (primary) hypertension; F17.210 Nicotine dependence, cigarettes, uncomplicated; R31.9 Hematuria, unspecified; E66.01 Morbid (severe) obesity due to excess calories; R31.0 Gross hematuria; Z86.718 Personal history of other venous thrombosis and embolism; Z68.34 Body mass index [BMI] 34.0-34.9, adult; Z90.49 Acquired absence of other specified parts of digestive tract
CPT/HCPCS: 36415-UA; 71045-TC; 76770-TC; 76857-TC; 80048-TC; 80053-TC; 80061-TC; 80307; 81001-TC; 83605; 83690-TC; 83880-TC; 84443-TC; 84484-TC; 85007-TC; 85025-TC; 85027-TC; 85379-TC; 85610-TC; 87086-90; 93005; J0696; J1956; Z7610